=== PATIENT | female | born 1960 | race Caucasian/White ===

== ENCOUNTER 2023-07-31 03:56 | Inpatient (IN) | payer BC, SELFPAY ==
[2023-07-31] VITALS (12 sets, daily range): BP systolic 96–140; BP diastolic 52–74; PULSE 93–100; BMI 29.5; BMI 25.3
--- NOTE | 2023-07-31 00:32 | ED.GENMED ---
History of Present Illness
<EDDIE Gallagher - Last Filed: 07/31/23 06:36>
General
Chief Complaint: Swelling
Source: patient
Exam Limitations: none
Time Seen by Provider: 07/31/23 00:18
Nursing documentation reviewed up to this point in time: agreed with
History of Present Illness
History of Present Illness:
patient is a 62 y/o female with PMH of alcohol abuse presenting for swelling of B/l LE swelling. Patient admits the swelling has been off and on for the last few weeks and usually ice, elevation or a warm shower will help get rid of it. However this
time patient said it wouldn't go away with her normal remedies and there was increased pain. patient admits the pain is in both legs and described it as a throbbing pain that is constant. patient says the pain is worse at the toes. Patient admits to
bloating that has been on and off for a few weeks that comes and goes. patient describes discomfort with the bloating as 'fullness.' patient admits to a history of alcohol abuse but admits to not having any alcohol in months. patient states that she
has a history of liver issues but does not know what it is. patient denies any alcohol or smoke in the last 48 hours. patient denies and SOB, CP, DAVIS, itching, fever, chills, blood in stool or urine.
Past History
<EDDIE Gallagher - Last Filed: 07/31/23 06:36>
Past History
ED Past Medical History: GERD and Psychiatric (anxiety, depression)
ED Past Surgical History: Other
Social History
Tobacco: Other
Alcohol: Chronic alcoholic
Drug: Other
Personal:
Living: with family
Employment: Other
Review of Systems
<EDDIE Gallagher - Last Filed: 07/31/23 06:36>
Review of Systems
ABD/GI: Reports abdominal pain (fullness) and other (bloating)
Musculoskeletal: Reports edema
Skin: Reports rash and other (erythema )
Phy Exam
<EDDIE Gallagher - Last Filed: 07/31/23 06:36>
General Physical Exam
General Presentation: mild distress
Eye Exam
Scleral Findings: icteric sclera: Bilateral
Gastrointestinal Exam
Gastrointestinal Exam: normal bowel sounds, distended and tender
Palpation: generalized: Moderate tenderness
Liver Exam: jaundice (mild )
Skin Exam
Skin Exam: erythema, redness, tenderness, warmth and other (pitting edema noted over b/l lower extremities )
Scores
<EDDIE Gallagher - Last Filed: 07/31/23 06:36>
Heart Failure Risk
Heart Failure Risk Score: Not Applicable
Course
<EDDIE Gallagher - Last Filed: 07/31/23 06:36>
Orders/Labs/Results
Orders:
Orders
07/31/23 00:34
Electrocardiogram (*1) Urgent
Reason for Study: Other
Other Reason for Exam: Possible Sepsis
EKG- Treatment ONCE
07/31/23 00:40
Complete Blood Count/With Diff Urgent
Comprehensive Metabolic Panel Urgent
Lactic Acid Q4H
Comment: ON ICE, CANCEL 2ND ORDER IF FIRST LACTIC ACID LEVEL <2
Lipase Urgent
Sedimentation Rate [Erythrocyte Sed Rate] Urgent
Blood Culture Q30M
LEXY Source: Blood/Venous
Specimen Description:
Comment: FROM 2 SEPARATE SITES
Blood Culture Q30M
LEXY Source: Blood/Venous
Specimen Description:
Comment: FROM 2 SEPARATE SITES
07/31/23 01:27
US Abdomen Complete/Upper Urgent
Comment:
Reason For Exam: distention, elev lfts
US Legs, Bilateral [US Periph Venous LOWER Ext Jose G] Urgent
Comment:
Reason For Exam: swelling
07/31/23 02:50
Stool for occult blood [Hemetest Stools] As Directed
07/31/23 02:58
CRP [C-Reactive Protein] Urgent
INR [Prothrombin Time] Urgent
NH3 [Ammonia] Urgent
07/31/23 03:08
Admit/Transfer Patient As Directed
Co-Sign Provider:
Level of Care: Inpatient admission
Assign to:: Medical/Surgical
Physician / Group: htay
Diagnosis: ETOH associated Cirrhosis /New Ascites/ severe anemia
Reason for Hospitalization: ETOH associated Cirrhosis
New Ascites
Anasarca due to severe hypoalbuminema complicated b/l Chelsy edema
Severe NC NC anemia
Expected length of stay greater than two midnights?: Yes
ELOS- Estimated Length of Stay in days: 4
I certify the patient meets the requirements for IP care: Yes
07/31/23 03:10
Code Status As Directed
Resuscitation Status: Full Code
07/31/23 03:58
Pantoprazole 80 mg/100 ml Nss [Protonix] 80 mg in 100 ml IV Q10H
07/31/23 03:58
Consult Interventional Radiology [IRAD CONSULT] Routine
Consulting Provider: Benji Payton
Was physician already notified: No
Reason for consult: ETOH associated Cirrhosis New Ascites
Consult Notification Routine
Specialty to Notify: Gastroenterology
Consult Notification Routine
Specialty to Notify: IRAD (Interventional Radiology)
GASTROINTESTINAL CONSULT Routine
Consulting Provider: Martha Porter
Was physician already notified: No
Reason for consult: ETOH associated Cirrhosis New Ascites
Body Fluid Amylase Routine
Fluid Source: Peritoneal (Ascites)
Body Fluid Cell Count Routine
What is the Body Fluid: peritoneal fluid
Comment: post procedure
Body Fluid LDH Routine
Fluid Source: Peritoneal (Ascites)
Body Fluid Protein Routine
Fluid Source: Peritoneal (Ascites)
Fluid Culture with Gram Stain Routine
LEXY Source: Peritoneal Fluid
Specimen Description:
Comment: Post Procedure
Activity As Directed
Activity Level: With Assistance
INT (Intravenous Needle Therapy) As Directed
Comment: Place 2 IV catheters of the largest bore possible until stable
Intake/ Output As Directed
Frequency: Per unit guidelines
Orthostatic Vital Signs As Directed
Orthostatic VS Frequency: Now
Comment: then every four hours for twenty-four hours
Pneumatic Compression Sleeves As Directed
Type: Knee high
Vital Signs As Directed
Frequency: Per unit guidelines
Vital Signs As Directed
Specimen Description:
Frequency: Per unit guidelines
Weight As Directed
Frequency: Daily
IRAD Cytology Routine
Source: Peritoneal Fluid
Clinical Impression: etoh cirrhosis
DX Deep Vein Thrombosis Video Routine
07/31/23 Breakfast
NPO
Allow oral meds: Yes
Allow clear liquids: No
NPO with Ice Chips: Yes
Regular
At Your Request: Full Participation
Gram Stain IN AM
LEXY Source: Abdomen
Specimen Description:
07/31/23 06:16
Ferritin IN AM
H&H Q6H
Vitamin B12 IN AM
07/31/23 08:00
FOLic ACID [Folvite] 1 mg PO DAILY
Paroxetine [Paxil] 20 mg PO DAILY
07/31/23 12:00
H&H Q6H
07/31/23 18:00
H&H Q6H
07/31/23 23:59
H&H Q6H
08/01/23 06:00
Complete Blood Count/No Diff IN AM
Comprehensive Metabolic Panel IN AM
08/02/23 06:00
Complete Blood Count/No Diff IN AM
Comprehensive Metabolic Panel IN AM
08/03/23 06:00
Complete Blood Count/No Diff IN AM
Abnormal Lab Results
07/31/23 07/31/23
00:40 02:58
RBC 2.88 L 10^6/uL
(4.20-5.40)
Hgb 8.8 L g/dL
(12.0-16.0)
Hct 26.7 L %
(37.0-47.0)
RDW 16.4 H %
(11.5-14.5)
Absolute Monos (auto) 1.3 H 10^3/uL
(0.1-0.6)
Monocytes % 16.0 H %
(1.7-9.3)
ESR 58 H mm/hour
(0-20)
PT 15.9 H Sec
(11.4-14.6)
Sodium 130 L mmol/L
(135-145)
Calcium 8.0 L mg/dl
(8.4-10.2)
Total Bilirubin 1.6 H mg/dl
(0.2-1.3)
AST 48 H U/L
(14-36)
Ammonia < 9 L umol/L
(9-30)
C-Reactive Protein 12.20 H mg/L
(0.0-10.00)
Total Protein 5.4 L g/dl
(6.3-8.2)
Albumin 2.4 L g/dl
(3.5-5.0)
Lipase 374 H U/L
(23-300)
07/31/23 00:40
07/31/23 00:40
Vital Signs
Initial and Last Documented VS:
Initial Vital Signs
Temp Pulse Resp BP Pulse Ox
98.1 F 96 35 129/67 100
07/31/23 00:27 07/31/23 00:27 07/31/23 00:27 07/31/23 00:27 07/31/23 00:27
Last Documented Vital Signs
Temp Pulse Resp BP Pulse Ox
98.1 F 91 18 101/64 96
07/31/23 00:27 07/31/23 04:00 07/31/23 04:00 07/31/23 04:00 07/31/23 04:00
<Pola Steven, DO - Last Filed: 07/31/23 02:38>
Orders/Labs/Results
Orders:
Orders
07/31/23 00:34
Electrocardiogram (*1) Urgent
Reason for Study: Other
Other Reason for Exam: Possible Sepsis
EKG- Treatment ONCE
07/31/23 00:40
Complete Blood Count/With Diff Urgent
Comprehensive Metabolic Panel Urgent
Lactic Acid Q4H
Comment: ON ICE, CANCEL 2ND ORDER IF FIRST LACTIC ACID LEVEL <2
Lipase Urgent
Sedimentation Rate [Erythrocyte Sed Rate] Urgent
Blood Culture Q30M
LEXY Source: Blood/Venous
Specimen Description:
Comment: FROM 2 SEPARATE SITES
Blood Culture Q30M
LEXY Source: Blood/Venous
Specimen Description:
Comment: FROM 2 SEPARATE SITES
07/31/23 01:27
US Abdomen Complete/Upper Urgent
Comment:
Reason For Exam: distention, elev lfts
US Legs, Bilateral [US Periph Venous LOWER Ext Jose G] Urgent
Comment:
Reason For Exam: swelling
07/31/23 02:50
Stool for occult blood [Hemetest Stools] As Directed
07/31/23 02:58
CRP [C-Reactive Protein] Urgent
INR [Prothrombin Time] Urgent
NH3 [Ammonia] Urgent
07/31/23 03:08
Admit/Transfer Patient As Directed
Co-Sign Provider:
Level of Care: Inpatient admission
Assign to:: Medical/Surgical
Physician / Group: htay
Diagnosis: ETOH associated Cirrhosis /New Ascites/ severe anemia
Reason for Hospitalization: ETOH associated Cirrhosis
New Ascites
Anasarca due to severe hypoalbuminema complicated b/l Chelsy edema
Severe NC NC anemia
Expected length of stay greater than two midnights?: Yes
ELOS- Estimated Length of Stay in days: 4
I certify the patient meets the requirements for IP care: Yes
07/31/23 03:10
Code Status As Directed
Resuscitation Status: Full Code
07/31/23 03:58
Pantoprazole 80 mg/100 ml Nss [Protonix] 80 mg in 100 ml IV Q10H
07/31/23 03:58
Consult Interventional Radiology [IRAD CONSULT] Routine
Consulting Provider: Benji Payton
Was physician already notified: No
Reason for consult: ETOH associated Cirrhosis New Ascites
Consult Notification Routine
Specialty to Notify: Gastroenterology
Consult Notification Routine
Specialty to Notify: IRAD (Interventional Radiology)
GASTROINTESTINAL CONSULT Routine
Consulting Provider: Martha Porter
Was physician already notified: No
Reason for consult: ETOH associated Cirrhosis New Ascites
Body Fluid Amylase Routine
Fluid Source: Peritoneal (Ascites)
Body Fluid Cell Count Routine
What is the Body Fluid: peritoneal fluid
Comment: post procedure
Body Fluid LDH Routine
Fluid Source: Peritoneal (Ascites)
Body Fluid Protein Routine
Fluid Source: Peritoneal (Ascites)
Fluid Culture with Gram Stain Routine
LEXY Source: Peritoneal Fluid
Specimen Description:
Comment: Post Procedure
Activity As Directed
Activity Level: With Assistance
INT (Intravenous Needle Therapy) As Directed
Comment: Place 2 IV catheters of the largest bore possible until stable
Intake/ Output As Directed
Frequency: Per unit guidelines
Orthostatic Vital Signs As Directed
Orthostatic VS Frequency: Now
Comment: then every four hours for twenty-four hours
Pneumatic Compression Sleeves As Directed
Type: Knee high
Vital Signs As Directed
Frequency: Per unit guidelines
Vital Signs As Directed
Specimen Description:
Frequency: Per unit guidelines
Weight As Directed
Frequency: Daily
IRAD Cytology Routine
Source: Peritoneal Fluid
Clinical Impression: etoh cirrhosis
DX Deep Vein Thrombosis Video Routine
07/31/23 Breakfast
NPO
Allow oral meds: Yes
Allow clear liquids: No
NPO with Ice Chips: Yes
Regular
At Your Request: Full Participation
Gram Stain IN AM
LEXY Source: Abdomen
Specimen Description:
07/31/23 06:16
Ferritin IN AM
H&H Q6H
Vitamin B12 IN AM
07/31/23 08:00
FOLic ACID [Folvite] 1 mg PO DAILY
Paroxetine [Paxil] 20 mg PO DAILY
07/31/23 12:00
H&H Q6H
07/31/23 18:00
H&H Q6H
07/31/23 23:59
H&H Q6H
08/01/23 06:00
Complete Blood Count/No Diff IN AM
Comprehensive Metabolic Panel IN AM
08/02/23 06:00
Complete Blood Count/No Diff IN AM
Comprehensive Metabolic Panel IN AM
08/03/23 06:00
Complete Blood Count/No Diff IN AM
Abnormal Lab Results
07/31/23 07/31/23
00:40 02:58
RBC 2.88 L 10^6/uL
(4.20-5.40)
Hgb 8.8 L g/dL
(12.0-16.0)
Hct 26.7 L %
(37.0-47.0)
RDW 16.4 H %
(11.5-14.5)
Absolute Monos (auto) 1.3 H 10^3/uL
(0.1-0.6)
Monocytes % 16.0 H %
(1.7-9.3)
ESR 58 H mm/hour
(0-20)
PT 15.9 H Sec
(11.4-14.6)
Sodium 130 L mmol/L
(135-145)
Calcium 8.0 L mg/dl
(8.4-10.2)
Total Bilirubin 1.6 H mg/dl
(0.2-1.3)
AST 48 H U/L
(14-36)
Ammonia < 9 L umol/L
(9-30)
C-Reactive Protein 12.20 H mg/L
(0.0-10.00)
Total Protein 5.4 L g/dl
(6.3-8.2)
Albumin 2.4 L g/dl
(3.5-5.0)
Lipase 374 H U/L
(23-300)
07/31/23 00:40
07/31/23 00:40
Vital Signs
Initial and Last Documented VS:
Initial Vital Signs
Temp Pulse Resp BP Pulse Ox
98.1 F 96 35 129/67 100
07/31/23 00:27 07/31/23 00:27 07/31/23 00:27 07/31/23 00:27 07/31/23 00:27
Last Documented Vital Signs
Temp Pulse Resp BP Pulse Ox
98.1 F 91 18 101/64 96
07/31/23 00:27 07/31/23 04:00 07/31/23 04:00 07/31/23 04:00 07/31/23 04:00
Tesfayelt;EDDIE Gallagher - Last Filed: 07/31/23 06:36>
MDM/Problems Addressed
Differential Diagnosis Includes:
liver failure
cellulitis
MDM/Problems Addressed:
b/l LE swelling
<EDDIE Gallagher - Last Filed: 07/31/23 06:36>
*Critical Care Note
Total Time (30-74mins, 75-104mins- exclusive of procedures): Not Applicable
ED Attending Note
<EDDIE Gallagher - Last Filed: 07/31/23 06:36>
-
Portions of this chart may have been created with voice recognition software.� Occasional wrong word or��sound alike� substitutions may have occurred due to the inherent limitations of voice recognition software.
<Pola Steven DO - Last Filed: 07/31/23 02:38>
ED Attending Note
Patient seen and examined by attending physician: Yes
I performed the substantive portion of visit, reviewed & personally made and approve the management plan that is documented in note by myself or NATALIO.: Yes
ED Attending Note:
62-year-old female presents with bilateral lower extremity leg pain, swelling, edema, and redness. She states that her legs have always giving her trouble. She reports that they are always red and at times the erythema is worse than it is now.
She states that she is having pain. This pain is typical but she feels that she wanted to get it checked out. She also reports that the pain is typically alleviated with ice and shower. Tonight she states that those remedies have not worked.
Patient was seen in conjunction with the PA student. I have reviewed and agree with the history and treatment plan presented. On my independent physical exam, patient is awake, alert, and oriented x3. Abdomen is distended with diffuse tenderness
to palpation. Lower extremities are edematous and erythematous. They are warm to the touch. No respiratory distress. Scleral icterus present.
Rectal exam positive for occult blood. Blood consent signed by patient and is scanned in on the chart
Patient admits to drinking 5 of vodka daily for many years. She quit several months ago. She states that she is still occasionally has a beer with dinner but does not drink as extensively as she once did.
EKG shows sinus tachycardia rate of 95 left axis deviation present. There is a left bundle branch block present. When compared to previous EKG dated February 27, 2021, similar morphology noted. Patient not having any chest pain.
Discharge Plan
Departure
Patient Disposition: Admit
Date of Disposition: 07/31/23
Time of Disposition: 02:37
Presentation/result/management discussed w/ accepting MD/DO: Hospitalist
Discharge Problem:
Ascites, Leg edema, Abdominal distension, Anemia
Interventions
Interventions:
*Risk Screen - Suicide Last Done: 07/31/23 00:27
*General Assessment Last Done: 07/31/23 00:27
*Neglect/Abuse Screening Last Done: 07/31/23 00:27
ED- Fall Risk Assessment Last Done: 07/31/23 01:03
*ED COVID-19 Vaccine History Last Done: 07/31/23 01:46
ED- Cardiac Assessment Last Done: 07/31/23 01:03
ED- Pulmonary Assessment Last Done: 07/31/23 01:03
ED-Skin Assessment Last Done: 07/31/23 01:03
[2023-07-31 00:50] LABS: % Basophils 1.4 % (0-2); % Eosinophils 3.7 % (0-6); % Immature Granulocytes 0.5 % (0-0.5); % Lymphocytes 22.1 % (20.5-51.1); % Neutrophils 56.3 % (42.2-75.2); Absolute Basophils 0.1 10^3/uL (0-0.2); Absolute Eosinophils 0.3 10^3/uL (0-0.7); Absolute Lymphocytes 1.8 10^3/uL (1.2-3.4); Absolute Monocytes 1.3 10^3/uL (0.1-0.6); Absolute Neutrophils 4.7 10^3/uL (1.4-6.5); Hematocrit 26.7 % (37.0-47.0); Hemoglobin 8.8 g/dL (12.0-16.0); Mean Corpuscular Hgb 30.6 pg (27.0-31.0); Mean Corpuscular Volume 92.7 fL (81.0-99.0); Mean Platelet Volume 8.5 fL (7.4-10.4); Nucleated Red Blood Cells % 0 %; Platelet Count 315 10^3/uL (130-400); Red Blood Cell Count 2.88 10^6/uL (4.20-5.40); Red Cell Dist. Width 16.4 % (11.5-14.5); White Blood Cell Count 8.3 10^3/uL (4.8-10.8)
[2023-07-31 01:13] LABS: Lactic Acid 1.2 mmol/L (0.7-2.0)
[2023-07-31 01:15] LABS: ALT (SGPT) 16 U/L (0-35); AST (SGOT) 48 U/L (14-36); Albumin 2.4 g/dl (3.5-5.0); Alkaline Phosphatase 125 U/L (38-126); Blood Urea Nitrogen 10 mg/dl (7-17); Carbon Dioxide 22 mmol/L (22-30); Chloride 105 mmol/L (98-107); Glucose 87 mg/dl (70-99); Lipase 374 U/L (23-300); Potassium 4.1 mmol/L (3.5-5.1); Sodium 130 mmol/L (135-145); Total Bilirubin 1.6 mg/dl (0.2-1.3); Total Protein 5.4 g/dl (6.3-8.2); eGFR > 60.00
--- NOTE | 2023-07-31 03:02 | HPS.HSE ---
Family Physician
-
Family Physician: Ramirez Flor
Chief Complaint
-
Chelsy swelling for weeks.
History of Present Illness
62F HX ETOH use disorder seen at ER for evaluation of Chelsy swelling for weeks. Associated with pain and redness for few days. She took one dose of Alieve yesteray
Report bron stool. Denied black stool
Also noted fullness , described as bloating of abdomen.
Reports stop drinking ETOH for months.
Denied fever and chills
Medical History
Past Medical History
Past Medical History: Reports Other
Additional Past Medical History:
Recent former ETOH use disorder
HX Alcoholic hepatitis
GERD
Anxiety, depression,
Psoriasis
Past Surgical History: Reports Other
Social History
Tobacco: Non-smoker
Alcohol: Former (Used to drink 1/5 of vodka daily for many years. )
Drug: None
Family History
Family History: Not pertinent
Allergies / Home Medications
Allergies reflects when Allergies were last updated in [facility].
Home Medications with original date entered in [facility]
Allergy/Medication List:
Allergies
Allergy/AdvReac Type Severity Reaction Status Date / Time
Penicillins Allergy Unknown Verified 02/27/21 16:44
Home Medications
paroxetine HCl 20 mg tablet 20 mg PO DAILY Mental Health/Anxiety 02/27/21
Vitamin B-1 300 mg PO DAILY 07/31/23
cholecalciferol (vitamin D3) 25 mcg (1,000 unit) capsule (Vitamin D3) 75 mcg PO DAILY 07/31/23
donepezil 10 mg tablet 10 mg PO HS 07/31/23
folic acid 1,000 mcg PO DAILY 07/31/23
hydroxyzine HCl 25 mg tablet 25 mg PO TID 07/31/23
spironolactone 25 mg tablet 25 mg PO BID 07/31/23
Review of Systems
-
Constitutional: Reports No Symptoms
EENT: Reports No Symptoms
Respiratory: Reports No Symptoms
Cardiac: Reports No Symptoms
Abdomen/GI: Reports See HPI and Abdominal Pain
: Reports No Symptoms
Musculoskeletal: Reports Edema
Skin: Reports No Symptoms
Neurological: Reports No Symptoms
Endocrine: Reports No Symptoms
Hematologic/Lymphatic: Reports No Symptoms
Psych: Reports No Symptoms
Physical Exam
Vital Signs
Vital Signs
Temp Pulse Resp BP Pulse Ox
98.1 F 97 25 105/52 96
07/31/23 00:27 07/31/23 02:15 07/31/23 02:15 07/31/23 02:14 07/31/23 02:15
Physical Exam
General: No Apparent Distress and Comfortable
HEENT: NormoCephalic, Moist mucous membranes and Atraumatic
Respiratory: Clear
Cardiac: S1/S2 and Regular Rhythm
Breast: Deferred by me
Genito-urinary: Deferred by me
Musculoskeletal: Edema, Left Lower Extremity, Edema, Right Lower Extremity and Other (wram, red , b/l leg edma with lymphedenatous changes )
Skin: Warm
Neuro: AO x 3, Nonfocal/grossly intact and Other (no asterix )
Psych: Calm
Laboratory Results
-
07/31/23 00:40
07/31/23 00:40
Laboratory Results
Lactic Acid Cancelled 07/31/23 04:45
Total Bilirubin 1.6 mg/dl (0.2-1.3) H 07/31/23 00:40
AST 48 U/L (14-36) H 07/31/23 00:40
ALT 16 U/L (0-35) 07/31/23 00:40
Alkaline Phosphatase 125 U/L (38-126) 07/31/23 00:40
Lipase 374 U/L (23-300) H 07/31/23 00:40
Data Reviewed
-
Ultrasound: Report Reviewed by me
Lab Data: Labs Reviewed by me
Old Records: Reviewed
Impression/Plan
-
Reviewed VS: Afebrile , marginal ST ,marginal hypotension
Data
WCC 8.3
Hgb 8.8 - last Hgb was 13 on 03/01/21
MCV 92
Plt 315
Na 130
nl Cr nl eGFR
Ca 8 corrected Ca for Albumin 2.4 is 9.3
TB 1.6 AST 48 ALT 16
Alb 2.4
Pending INR
Pending NH3
BCx sent
US abd
Moderate amount of ascites in all quadrants of the abdomen, right-sided greater than left.
Nodular cirrhotic hyperechoic liver.
Cholelithiasis. Nonspecific gallbladder wall thickening of 4 mm. Negative Garza sign. No biliary ductal dilatation.
Bilateral renal cortical thinning.
Spleen measures up to 11.4 cm.
NEG Chelsy US for DVT
Last hospitalist admission: 03/01/21- 03/01/21
DC Dx
1. Alcoholic gastritis.
2. Alcohol use disorder.
3. Hypokalemia.
4. Hyponatremia.
5. Essential hypertension.
ASSESSMENT & PLAN
ETOH associated Cirrhosis
New Ascites: symptomatic , +/_ SBP due to Portal HTN
Portal HTN - somewhat normal platelet - not yet hypersplenic
Anasarca due to severe hypoalbuminemia complicated b/l Chesly edema
Synthetic dysfunction of liver cirrhosis suspected - low albumin
- Sono evidence of Nodular cirrhotic hyperechoic liver
- Sono evidence of enlarged spleen
- check INR
- NH3 for the base line ( No clinical eveidence of hepatic encephalopathy
- Hold off ABx for now
- IR consult for abdominal paracentesis to eval for SBP
- GI consult
HoB POS brown stool - suspect anemia due to chr GI loss
Severe NC NC anemia +/_ hemodilution due to anasarca
Nl WCC
Nl platelet
- took one dose of Aleive last night for leg pain
- HD stable - no acute indication for blood Tx yet
- check B12, Folate
- Eval for GIB
- NPO, IVF
- PPI gtt
- T & S, blood consented
- GI eval to consider EGD to eval varix
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
- Held Aldactone
- Observe BP
B/l painful warm erythematous leg with lymphedematous changes
HD stable, afebrile, nl WCC
- Hold off ABx for now till paracentesis
Anxiety/depression
- cont Paxil
HX ETOH use disorder- stoped for several months
- Observe
GERD
- on PPI gtt
DVT Px: SCD
Code: Full
IP MS
[2023-07-31 03:19] LABS: INR 1.29; PT 15.9 Sec (11.4-14.6)
[2023-07-31 03:20] LABS: Ammonia < 9 umol/L (9-30)
[2023-07-31] MEDS: PROTONIX 100 IV (04:15)
[2023-07-31 06:10] LABS: Erythrocyte Sed Rate 58 mm/hour (0-20)
[2023-07-31 06:27] LABS: Hematocrit 27.2 % (37.0-47.0); Hemoglobin 9.3 g/dL (12.0-16.0)
[2023-07-31 07:33] LABS: Ferritin 20.3 ng/ml (11.1-264.0)
[2023-07-31 07:48] LABS: Vitamin B12 739 pg/ml (239-931)
--- NOTE | 2023-07-31 08:59 | W.PN.HOSP.TC ---
Today's Communication/Plan
-
paracentesis
stop protonix gtt and change to BID
IV Cefazolin, LE elevation
F/U further GI recs
Assessment / Plan
Assessment / Plan
US abd
Moderate amount of ascites in all quadrants of the abdomen, right-sided greater than left.
Nodular cirrhotic hyperechoic liver.
Cholelithiasis. Nonspecific gallbladder wall thickening of 4 mm. Negative Garza sign. No biliary ductal dilatation.
Bilateral renal cortical thinning.
Spleen measures up to 11.4 cm.
ASSESSMENT & PLAN
ETOH associated Cirrhosis
Ascites - patient telling me she gets paracentesis every week
Portal HTN
Anasarca due to severe hypoalbuminemia complicated b/l Chelsy edema
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
- Sono evidence of Nodular cirrhotic hyperechoic liver
- Sono evidence of enlarged� spleen�
- INR 1.29
- NH3 < 9
- IR consult for abdominal paracentesis to eval for SBP
- GI consult
Anemia
-stable Hg, no e/o active bleeding
-change protonix to IV BID
-add on iron panel
-appreciate GI consult
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
-� Held Aldactone, resume tomorrow post para
- Observe BP
B/l painful warm erythematous leg with lymphedematous changes
HD stable, afebrile, nl WCC
-will start IV Cefazolin post para (going now)
Anxiety/depression
- cont� Paxil
HX ETOH use disorder- stopped for several months
- Observe
GERD
PPI
DVT Px: SCD
Code: Full
IP MS
Anticipated Discharge: 24 - 48 hours
Subjective/Interval History
-
Date of Service: July 31, 2023
patient telling me her legs look less red than earlier
she is forgetful
Objective Data
-
Labs:
Laboratory Results
07/31/23 07/31/23 07/31/23
00:40 02:58 06:16
WBC 8.3
Hgb 8.8 L 9.3 L
Hct 26.7 L 27.2 L
Plt Count 315
PT 15.9 H
INR 1.29
Sodium 130 L
Potassium 4.1
Chloride 105
Carbon Dioxide 22
BUN 10
Creatinine 0.6
Glucose 87
Calcium 8.0 L
Total Bilirubin 1.6 H
AST 48 H
ALT 16
Alkaline Phosphatase 125
07/31/23 07/31/23 07/31/23
12:00 18:00 23:59
WBC
Hgb Pending Pending Pending
Hct Pending Pending Pending
Plt Count
PT
INR
Sodium
Potassium
Chloride
Carbon Dioxide
BUN
Creatinine
Glucose
Calcium
Total Bilirubin
AST
ALT
Alkaline Phosphatase
Vital Signs:
Vital Signs
Temp Pulse Resp BP Pulse Ox
98.1 F 101 22 114/61 98
07/31/23 07:21 07/31/23 07:21 07/31/23 07:21 07/31/23 07:21 07/31/23 07:21
Review of Systems
-
History Source: Patient
All other systems: Reviewed and negative
Physical Exam
-
General: No Apparent Distress and Appears Chronically Ill
HEENT: PERRLA
Respiratory: Clear to Auscultation; Negative Wheezes
Cardiac: Regular Rhythm and S1/S2
GI: Soft and Nontender
Musculoskeletal: Other (b/l erythema and swelling, tenderness )
Skin: Warm and Dry; Negative Rash
Neuro: AO x 3
Psych: Calm
Data Reviewed
-
Diagnostic Radiology: Report Reviewed by me
Labs: Labs Reviewed by me
[2023-07-31] MEDS: FOLVITE 1 MG PO (09:08)
[2023-07-31] MEDS: PAXIL 20 MG PO (09:09)
--- NOTE | 2023-07-31 09:11 | CON.GI ---
Addendum entered and electronically signed by Martha Porter MD 07/31/23 16:31:
I saw and examined the patient.
The PROSTHETIST or PA's note was reviewed and I agree with the note.
Comment: 62-year-old female past medical history of alcoholic cirrhosis MELD Na 18 undergoing weekly paracentesis following at [facility] presenting with lower extremity swelling and erythema consistent with likely cellulitis. Initially, the ER
thought the ascites was new but on discussion with the patient she gets weekly paracentesis. Unclear why, she is on a low-dose of diuretics (not sure why on higher doses with need for weekly paracentesis). We do not have access to her records that
she follows with [facility]. She has anemia although we do not have her baseline and cirrhotics are typically anemic - should get records. Patient denies any blood in her stool. According to ER notes brown guaiac positive. Discussed with
[facility], can decrease PPI to daily. Unclear if she even needs to be on it and there is an increased risk of SBP with PPIs defer to her outpatient GI at [facility] if this needs to be continued long-term. I stressed to the patient the importance of
following up with [facility]. With forgetfulness will add on xifaxan 550 bid. Defer care of cellulitis to primary team. GI will sign off. Please call with any questions or issues. D/w hospitalist Dr. Mott.
Original Note:
Consultation
-
Date/Time Consultation Requested: 07/31/2023 @ 03:58
Date/Time Consultation Performed: 07/31/2023 @ 09:00
Requesting Provider: Dr. Chamberlain
Performing Provider: SABRA Buenrostro; Dr. Alma Porter
Reason for Consultation: ETOH associated Cirrhosis New Ascites
Medical History
Chief Complaint / HPI
Chief Complaint: LE swelling
History of Present Illness:
The pt is a 62 yo female with a PMH significant for ETOH abuse, alcoholic hepatitis, cirrhosis, anxiety, GERD, psoriasis, who presented to the ER with complaints of ongoing LE swelling. We are being asked to evaluate for ?new onset ascites and
cirrhosis. The pt is a poor historian therefore the medical record was utilized for history. The pt notes she has had increased swelling and pain from her lower extremities. She also admits to increased distention of her abdomen with pain around her
umbilicus. She denies hx of cirrhosis but per nursing she was told she has a history of cirrhosis. The pt admits she follows with GI at [facility] and undergoes weekly paracentesis. She denies any significant confusion or lethargy, but is forgetful in
conversation. She denies yellowing of the skin or eyes, but admits her urine is very dark. She does not know her medications but reports she takes whatever she is prescribed. She denies any signs of bleeding such as melena, hematochezia, or
hematemesis. She denies fevers, chills, chest pain, or shortness of breath. She denies constipation or diarrhea. She does have chronic GERD and takes medicine for this (Nexium in her chart previously). She formly drank vodka daily but has since
stopped and will only have a beer on occasion. She has been seen in the past by our group with alcoholic hepatitis. She had EGD in February 2021 for n/v which was normal without evidence of varices. She denies use of blood thinners. She takes Aleve
on occasion but this is infrequently. She denies FH GI cancers or disorders. Prior colonoscopy within the last 10 years per pt. Routine labs on admission showed: hgb 8.8, WBC 8.3, MCV 92.7, plt 315,000, INR 1.29, Na 130, K 4.1, BUN 10, Cr 0.6,
Lactic acid 1.2, serum iron 33, iron sat 14, ferritin 20.3, TIBC 232, TB 1.6, AST 48, AT 16, alk phos 125, ammonia <9, CRP 12.2, lipase 374, vitamin b12 739. US of the abdomen showed large volume ascites, findings consistent with liver cirrhosis,
and cholelithiasis.
Past Medical History
Past Medical History: GERD, Psychiatric (anxiety, depression) and Other (ETOH abuse, alcoholic hepatitis, psoriasis, kidney stones)
Past Surgical History: and Gynecological (hysterectomy)
Social History
Tobacco: Former Smoker
Alcohol: Occasional (occasional beer, previously drank 1/5 vodka daily)
Drug: None
Personal:
Living: Alone
Family History
Family History: Reviewed & Not Pertinent
Allergies / Home Medications
Allergy/AdvReac Type Severity Reaction Status Date / Time
Penicillins Allergy Unknown Verified 02/27/21 16:44
Medication Instructions Recorded
paroxetine HCl 20 mg tablet 20 mg PO DAILY Mental 02/27/21
Health/Anxiety
Vitamin B-1 300 mg PO DAILY 07/31/23
cholecalciferol (vitamin D3) 25 75 mcg PO DAILY 07/31/23
mcg (1,000 unit) capsule (Vitamin
D3)
donepezil 10 mg tablet 10 mg PO HS 07/31/23
folic acid 1,000 mcg PO DAILY 07/31/23
hydroxyzine HCl 25 mg tablet 25 mg PO TID 07/31/23
spironolactone 25 mg tablet 25 mg PO BID 07/31/23
Review of Systems
-
History Source: Patient
Constitutional: Reports No Symptoms
EENT: Reports No Symptoms
Respiratory: Reports No Symptoms
Cardiac: Reports No Symptoms
Abdomen/GI: Reports Abdominal Pain (distention)
: Reports No Symptoms and Dark Urine
Musculoskeletal: Reports No Symptoms
Skin: Reports Other (redness/swelling bilateral LE's)
Neurological: Reports No Symptoms
Vital Signs
Temp Pulse Resp BP Pulse Ox
98.1 F 101 22 114/61 98
07/31/23 07:21 07/31/23 07:21 07/31/23 07:21 07/31/23 07:21 07/31/23 07:21
Physical Exam
Exam
General: Well Developed, No Apparent Distress, Comfortable and Other
HEENT: Normocephalic, Anicteric and Atraumatic
Respiratory: Clear
Cardiac: S1/S2 and Regular Rhythm
Breast: Deferred by me
GI: Soft, Non Tender, Normal Bowel Sounds and Distended
Rectal: Other (brown heme + per ER)
Musculoskeletal: Edema (+2 LE edema bilaterally with erythema and tenderness with palpation)
Skin: Warm, Dry and Other (as above LE exam)
Neuro: Awake, Alert and Oriented (to self, place, and time)
Psych: Calm and Other (forgetful)
Awake, alert, non-toxic appearing
Results
WBC 8.3 10^3/uL (4.8-10.8) 07/31/23 00:40
Hgb Cancelled 07/31/23 23:59
Hct Cancelled 07/31/23 23:59
MCV 92.7 fL (81.0-99.0) 07/31/23 00:40
Plt Count 315 10^3/uL (130-400) 07/31/23 00:40
Absolute Neuts (auto) 4.7 10^3/uL (1.4-6.5) 07/31/23 00:40
PT 15.9 Sec (11.4-14.6) H 07/31/23 02:58
INR 1.29 07/31/23 02:58
Sodium 130 mmol/L (135-145) L 07/31/23 00:40
Potassium 4.1 mmol/L (3.5-5.1) 07/31/23 00:40
Chloride 105 mmol/L (98-107) 07/31/23 00:40
Carbon Dioxide 22 mmol/L (22-30) 07/31/23 00:40
BUN 10 mg/dl (7-17) 07/31/23 00:40
Creatinine 0.6 mg/dL (0.6-1.0) 07/31/23 00:40
Calcium 8.0 mg/dl (8.4-10.2) L 07/31/23 00:40
Total Bilirubin 1.6 mg/dl (0.2-1.3) H 07/31/23 00:40
AST 48 U/L (14-36) H 07/31/23 00:40
ALT 16 U/L (0-35) 07/31/23 00:40
Alkaline Phosphatase 125 U/L (38-126) 07/31/23 00:40
Lipase 374 U/L (23-300) H 07/31/23 00:40
Diagnostic Image Results:
07/31/23 US abdomen: 'Large volume ascites. Liver within the limits of normal in size with slightly nodular contour which could represent cirrhotic pathology. Cholelithiasis. Evaluation of gallbladder wall limited secondary to ascites. No findings to
suggest biliary tract dilatation. Negative sonographic Garza's sign. Pancreas, abdominal aorta and IVC significantly obscured, most likely by overlying bowel gas.'
07/31/23 Duplex US LE: No evidence of deep venous thrombosis of the lower extremities bilaterally.
Prior GI Procedures:
EGD: 03/01/21 Dr. Porter: �Normal esophagus. Erythematous mucosa in the stomach. Biopsied. Normal examined duodenum.
Colonoscopy: about 9-10 years ago [facility] + polyps per pt
Assessment / Plan
-
The pt is a 62 yo female with a PMH significant for ETOH abuse, alcoholic hepatitis, cirrhosis, anxiety, GERD, psoriasis, who presented to the ER with complaints of ongoing LE swelling. We are being asked to evaluate for ?new onset ascites and
cirrhosis. Poor historian but reports weekly paracentesis at [facility]. Unclear on when she was diagnosed with cirrhosis but continues intermittent alcohol use. Decompensated with ascites, and ?HE although with normal ammonia levels. May be secondary
to infection with concern for cellulitis. MELD-Na 18. Noted with anemia but no active signs of bleeding. No hx EV based on prior scope here in 2020. Pending IR for paracentesis.
Problem list:
-decompensated suspected alcoholic liver cirrhosis with ascites, MELD-Na 18
-?HE/confusion. normal ammonia level
-Cellulitis LE's
-normocytic anemia
-ETOH abuse, hx alcoholic hepatitis
-hyponatremia
-abnormal LFT's
-elevated CRP, ESR
Other pertinent medical hx:
-GERD
-Anxiety, depression
-psoriasis
Recommendations:
-Etiology of current symptoms 2/2 decompensated cirrhosis of the liver, suspected to be alcohol related, with ascites, and ?HE.
---US imaging confirming cirrhosis with large volume ascites
-Agree with diagnostics/therapeutic paracentesis, r/o SBP
-Abx for cellulitis per hospitalist, may cause mild HE with infection (although without leukocytosis, fevers, or lactic acidosis)
-Monitor LFTs and daily MELD-Na labs (CBC, CMP, INR)
-Trend H/H; heme + but brown stool without active signs of bleeding and normal platelets
-Iron studies as above showing iron deficiency. Consider Iron replacement.
-EGD 2020 without EV. She will need eventual EGD for surveillance of EV if not done recently at [facility].
-PPI BID ok, no active bleeding to suggest need for drip
-Obtain records from [facility] (reportedly gets paracentesis weekly there)
-Unclear as to why she is not on more diuretics at baseline (on spironolactone at 25mg daily), consider starting lasix 20mg/spiranolactone 50mg post paracentesis tomorrow. Will review with Dr. Porter
-She will need to abstain from alcohol completely going forward, which she is aware of
-Follow-up outpatient with her GI at [facility], she should also see hepatology
-Will follow
-
-
Thank you for consultation and allowing me to participate in the patient's care. Please call the substation supervisor GI physician during the after hours with any questions or concerns.
[2023-07-31 09:31] LABS: Iron 33 ug/dl (37-170)
[2023-07-31 09:40] LABS: Percent Saturation 14 % (20-50); Total Iron Binding Capacity 232 ug/dl (265-497)
--- NOTE | 2023-07-31 10:13 | CM ---
Patient seen at bedside, ready to go for testing. Patient recently and patient somewhat confused. Patient currently living in a 2 story home with 1 step to enter and no history of VN or SNF. Patient PCP per medical records and
patient daughter, PCP is Dr. Flor and she uses the [facility] in [place]. Patient indicated that CM should call Gladis as she was the oldest and would know how things were.
CM called to patient daughter Gladis who states that the family coming has been coming in for meals and patient melony and are in the process of of buying home and moving in with her. Patient daughter, Gladis's sister, sharee is working with
Waiver services to be patient caregiver, and is the patient POA, CM requested that the form be brought in to be scanned to the chart. Patient has a Chair lift and shower on 2nd floor but plan is for first floor apartment/in law suite to be
developed.
Per patient daughter in 2021 in [facility] in [place]. If needed SNF would be option but family discussion would be needed prior to any placements. CM will continue to follow for discharge planning needs.
Plan; home with VN vs SNF pending medical assessments
--- NOTE | 2023-07-31 11:00 | PTCARENOTE ---
Received pt from previous RN. Pt AOx3, forgetful, poor historian, pleasant. Bed alarm in place for pt safety. Jose G LE reddened w/ +3 edema. Elevated on pillows. VSS. Ab round and distended. Sent to IR for paracentesis. NPO, awaiting GI evaluation.
[2023-07-31 11:05] LABS: Body Fluid Amylase 43 U/L; Body Fluid LDH < 90 U/L; Body Fluid Protein < 2.0 g/dl
[2023-07-31] MEDS: ANCEF 10 IV ×2 (11:43→22:18)
[2023-07-31 13:51] LABS: Body Fluid Mononuclear 96.8 %; Body Fluid Polymorphonuclear 3.2 %; Body Fluid WBC 93 /CUMM
--- NOTE | 2023-07-31 14:00 | PTCARENOTE ---
Pt returned s/p paracentesis, bandaide in place on RLQ. VSS. Assisted pt OOB to bathroom x1, generalized weakness. Low fat diet ordered. Assisted pt to wash up at the sink. Will continue to monitor.
[2023-07-31 14:16] LABS: Body Fluid Second Tech HB
--- NOTE | 2023-07-31 16:15 | PTCARENOTE ---
Received pt from ED.Pt awake, alert and oriented x3. Forgetful at times. Pt VSS 98% on RA. Pt c/o discomfort in b/l lower extremities, tolerable at this time. Legs red/warm and edematous. Pt oriented to room, call raymond within reach, bed alarm placed
for safety, plan of care ongoing.
[2023-07-31] MEDS: XIFAXAN 550 MG PO (22:19)
[2023-08-01] VITALS (7 sets, daily range): BP systolic 108–148; BP diastolic 63–85; PULSE 93–108; BMI 25.1
[2023-08-01] MEDS: ULTRAM 25 MG PO ×2 (00:36→20:53)
[2023-08-01] MEDS: ANCEF 10 IV ×3 (04:49→20:53)
--- NOTE | 2023-08-01 06:00 | PTCARENOTE ---
Patient reports 8/10 pain to her bilateral lower extremities. ASBESTOS COVERER made aware, stat dose of tramadol 25 mg ordered and given to patient at 0036 with relief.
[2023-08-01] MEDS: PROTONIX 40 MG PO (07:44)
[2023-08-01] MEDS: FOLVITE 1 MG PO (07:45)
[2023-08-01] MEDS: XIFAXAN 550 MG PO ×2 (07:45→20:50)
[2023-08-01] MEDS: PAXIL 20 MG PO (07:45)
[2023-08-01 08:48] LABS: Hematocrit 28.4 % (37.0-47.0); Hemoglobin 9.3 g/dL (12.0-16.0); Mean Corp Hgb Conc. 32.7 g/dL (33.0-37.0); Mean Corpuscular Hgb 30.5 pg (27.0-31.0); Mean Corpuscular Volume 93.1 fL (81.0-99.0); Mean Platelet Volume 8.7 fL (7.4-10.4); Platelet Count 346 10^3/uL (130-400); Red Blood Cell Count 3.05 10^6/uL (4.20-5.40); Red Cell Dist. Width 16.4 % (11.5-14.5); White Blood Cell Count 6.3 10^3/uL (4.8-10.8)
[2023-08-01 09:44] LABS: ALT (SGPT) 15 U/L (0-35); AST (SGOT) 51 U/L (14-36); Albumin 2.3 g/dl (3.5-5.0); Alkaline Phosphatase 95 U/L (38-126); Blood Urea Nitrogen 8 mg/dl (7-17); Carbon Dioxide 21 mmol/L (22-30); Chloride 105 mmol/L (98-107); Estimated Creatinine Clearance 68 ml/min; Glucose 71 mg/dl (70-99); Potassium 4.2 mmol/L (3.5-5.1); Sodium 130 mmol/L (135-145); Total Bilirubin 2.1 mg/dl (0.2-1.3); Total Protein 5.2 g/dl (6.3-8.2); eGFR > 60.00
--- NOTE | 2023-08-01 11:09 | W.PN.HOSP.TC ---
Today's Communication/Plan
-
IV Cefazolin, likely transition to Keflex and DC tomorrow
Assessment / Plan
Assessment / Plan
US abd
Moderate amount of ascites in all quadrants of the abdomen, right-sided greater than left.
Nodular cirrhotic hyperechoic liver.
Cholelithiasis. Nonspecific gallbladder wall thickening of 4 mm. Negative Garza sign. No biliary ductal dilatation.
Bilateral renal cortical thinning.
Spleen measures up to 11.4 cm.
ASSESSMENT & PLAN
B/l LE Cellulitis
-improving on IV Cefazolin - continue (day 2)
-likely DC home tomorrow on Keflex
-PT HH
ETOH associated Cirrhosis
Ascites
Portal HTN
Anasarca due to severe hypoalbuminemia
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
-this is a known diagnosis, patient follows at [facility]
-s/p para without e/o SBP
-Rifaximin started per GI - CM consult for cost
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
Anemia
SAPNA
-stable Hg, no e/o active bleeding
-change protonix to daily
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
-� Held Aldactone, resume tomorrow post para
- Observe BP
Anxiety/depression
- cont� Paxil
HX ETOH use disorder- stopped for several months
- Observe
GERD
PPI
DVT Px: SCD
Code: Full
IP MS
Anticipated Discharge: 24 - 48 hours
Subjective/Interval History
-
Date of Service: August 01, 2023
legs improved this morning but continues to have pain
Objective Data
-
Labs:
Laboratory Results
08/01/23
07:55
WBC 6.3
Hgb 9.3 L
Hct 28.4 L
Plt Count 346
Sodium 130 L
Potassium 4.2
Chloride 105
Carbon Dioxide 21 L
BUN 8
Creatinine 0.5 L
Glucose 71
Calcium 8.0 L
Total Bilirubin 2.1 H
AST 51 H
ALT 15
Alkaline Phosphatase 95
Vital Signs:
Vital Signs
Temp Pulse Resp BP Pulse Ox
98.2 F 91 18 120/68 97
08/01/23 07:00 08/01/23 07:00 08/01/23 07:00 08/01/23 07:00 08/01/23 07:00
I&O
07/31/23 08/01/23 08/02/23
06:59 06:59 06:59
Intake Total 480 / 480
Balance 480 / 480
Review of Systems
-
History Source: Patient
All other systems: Reviewed and negative
Physical Exam
-
General: No Apparent Distress and Appears Chronically Ill
HEENT: PERRLA
Respiratory: Clear to Auscultation; Negative Wheezes
Cardiac: Regular Rhythm and S1/S2
GI: Soft and Nontender
Musculoskeletal: Other (b/l erythema and swelling, tenderness )
Skin: Warm and Dry; Negative Rash
Neuro: AO x 3
Psych: Calm
Data Reviewed
-
Diagnostic Radiology: Report Reviewed by me
Labs: Labs Reviewed by me
[2023-08-01] MEDS: ALDACTONE 25 MG PO ×2 (11:43→20:50)
[2023-08-01] MEDS: ARICEPT 10 MG PO (17:07)
[2023-08-02] MEDS: ANCEF 10 IV ×2 (04:58→11:53)
[2023-08-02 06:00] VITALS: BMI 25.2
[2023-08-02 07:30] VITALS: BP 118/61
[2023-08-02] MEDS: FOLVITE 1 MG PO (07:48)
[2023-08-02] MEDS: XIFAXAN 550 MG PO (07:48)
[2023-08-02] MEDS: ALDACTONE 25 MG PO (07:48)
[2023-08-02] MEDS: PROTONIX 40 MG PO (07:48)
[2023-08-02] MEDS: PAXIL 20 MG PO (07:48)
--- NOTE | 2023-08-02 11:52 | W.PN.HOSP.TC ---
Today's Communication/Plan
-
Ok for DC today
Assessment / Plan
Assessment / Plan
US abd
Moderate amount of ascites in all quadrants of the abdomen, right-sided greater than left.
Nodular cirrhotic hyperechoic liver.
Cholelithiasis. Nonspecific gallbladder wall thickening of 4 mm. Negative Garza sign. No biliary ductal dilatation.
Bilateral renal cortical thinning.
Spleen measures up to 11.4 cm.
ASSESSMENT & PLAN
B/l LE Cellulitis
-improving on IV Cefazolin - continue (day 3) -->transition to Keflex; DC on 5 more days
-PT HH
ETOH associated Cirrhosis
Ascites
Portal HTN
Anasarca due to severe hypoalbuminemia
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
-this is a known diagnosis, patient follows at [facility]
-s/p para without e/o SBP
-Rifaximin started per GI - CM consult for cost - no copay, will be available on Saturday
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
Anemia
SAPNA
-stable Hg, no e/o active bleeding
-change protonix to daily
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
-resume spironolactone
Anxiety/depression
- cont� Paxil
HX ETOH use disorder- stopped for several months
- Observe
GERD
PPI
DVT Px: SCD
Code: Full
IP MS
Anticipated Discharge: Today
Subjective/Interval History
-
Date of Service: August 02, 2023
feeling better
redness improving
wants to go home
Objective Data
-
Vital Signs:
Vital Signs
Temp Pulse Resp BP Pulse Ox
98.1 F 90 18 118/61 96
08/02/23 07:30 08/02/23 07:48 08/02/23 07:30 08/02/23 07:48 08/02/23 07:30
I&O
08/01/23 08/02/23 08/03/23
06:59 06:59 06:59
Intake Total 480 / 480 1500 / 1500
Balance 480 / 480 1500 / 1500
Review of Systems
-
History Source: Patient
All other systems: Reviewed and negative
Physical Exam
-
General: No Apparent Distress and Appears Chronically Ill
HEENT: PERRLA
Respiratory: Clear to Auscultation; Negative Wheezes
Cardiac: Regular Rhythm and S1/S2
GI: Soft and Nontender
Musculoskeletal: Other (b/l erythema and swelling, tenderness - improving )
Skin: Warm and Dry; Negative Rash
Neuro: AO x 3
Psych: Calm
Data Reviewed
-
Diagnostic Radiology: Report Reviewed by me
Labs: Labs Reviewed by me
--- NOTE | 2023-08-02 12:02 | W.DS.TRANS ---
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
-
Discharge Instructions:
Discharge Diagnosis/Procedures bilateral lower extremity cellulitis
Diet 2 Gram Sodium,Restrict fluids to 48 oz
Activity As tolerated
Driving Restrictions As prior to admission
Bathing Restrictions None
Other Services PT,VN
Instructions:
Stand-Alone Forms:
Changes to Home Medications: Yes
Discharge Medications:
DC Medications w/original date entered in [email or web address]
paroxetine HCl 20 mg tablet 20 mg PO DAILY Mental Health/Anxiety 02/27/21
cholecalciferol (vitamin D3) 25 mcg (1,000 unit) capsule (Vitamin D3) 75 mcg PO QPM Supplement 07/31/23
donepezil 10 mg tablet 10 mg PO QPM cognition 07/31/23
folic acid 1 mg tablet 1 mg PO QPM supplement 07/31/23
spironolactone 25 mg tablet 25 mg PO BID Fluid Retention/Swelling 07/31/23
thiamine HCl (vitamin B1) 300 mg PO QPM supplement 07/31/23
cephalexin 500 mg capsule 500 mg PO QID #20 caps 08/02/23
pantoprazole 40 mg tablet,delayed release 40 mg PO DAILY #30 tabs 08/02/23
rifaximin 550 mg tablet (Xifaxan) 550 mg PO BID #60 tabs 08/02/23
Home Medication Changes
Please follow up with your Rehabilitation Services Aide or Discuss with Dr. Flor referral to outpatient Rehabilitation Services Aide
You are started on Rifampin 550mg PO BID. It may not be available to pickle water pump operator until Saturday, Ok to wait until then.
Complete 5 more days of oral antibiotics.
Stop hydroxyzine - this can increase dizziness, unsteadiness.
Stop Naproxen give risk of GI upset.
Pending Results: No
[2023-08-02 12:12] VITALS: BP 134/71
--- NOTE | 2023-08-02 14:29 | W.DCSUMMARY ---
Discharge Summary
Discharge Data
Date of Admission: 07/31/23
Date of Discharge: 08/02/23
-
Pending Results: No
Hospital Course
Discharging Physician : Dr. Daylin Mott
Disposition : Home
Primary care physician : Dr. Ramirez Flor
Principal Discharge diagnosis : bilateral lower extremity cellulitis
Hospital Course :
Ms. Maria De Jesus Lopez is a 62 yo woman with hx alcoholic cirrhosis and ascites requiring paracentesis every week, former alcohol use disorder, anxiety/depression who presents to the ER with increased swelling and redness bilateral lower extremities.
Triage vitals stable. Labs without leukocytosis and normal kidney function. LE US without DVT. She was started on IV Cefazolin for LE cellulitis. Erythema improved and she is discharged with 5 more days of Keflex.
GI consulted for initial report that cirrhosis was new (patient poor historian); but patient receives paracentesis every week. She had paracentesis inpatient without e/o SBP. She is started on Rifaximin per GI. She is also started on daily
protonix. Hg stable in-house with value 9.3 on 07/31. Patient to follow up closely with her outpatient PCP and GI doctor. 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
Time spent on discharge was 35 minutes.
Important imaging findings :
Procedure findings :
Discharge Plan
-
Patient Disposition: Home with Home Care
Discharge Diagnosis/Procedures: bilateral lower extremity cellulitis
Condition: Fair
Diet: 2 Gram Sodium and Restrict fluids to 48 oz
Activity: As tolerated
Driving Restrictions: As prior to admission
Bathing Restrictions: None
Other Services: VN and PT
Referrals:
Ramirez Flor, [Family Provider] - in less than 1 week
Additional Discharge Medication Instructions: Please follow up with your Project Management Intern or Discuss with Dr. Flor referral to outpatient Project Management Intern
You are started on Rifampin 550mg PO BID. It may not be available to sweet pickled fruit maker until Saturday, Ok to wait until then.
Complete 5 more days of oral antibiotics.
Stop hydroxyzine - this can increase dizziness, unsteadiness.
Stop Naproxen give risk of GI upset.
Prescriptions:
New
Xifaxan 550 mg Tablet
550 mg PO BID Qty: 60 0RF
cephalexin 500 mg Capsule
500 mg PO QID Qty: 20 0RF
pantoprazole 40 mg Tablet,Delayed Release (Dr/Ec)
40 mg PO DAILY Qty: 30 0RF
Continued
paroxetine HCl 20 MG tablet
20 mg PO DAILY
donepezil 10 mg Tablet
10 mg PO QPM
Patient Comments:
07/31/2023, prescribed HS but pt. takes QPM.
spironolactone 25 mg Tablet
25 mg PO BID
cholecalciferol (vitamin D3) [Vitamin D3] 25 mcg (1,000 unit) Capsule
75 mcg PO QPM
folic acid 1 mg Tablet
1 mg PO QPM
thiamine HCl (vitamin B1)
300 mg PO QPM
Discontinued
hydroxyzine HCl 25 mg Tablet
25 mg PO TIDPRN PRN (Reason: anxiety)
naproxen sodium [Aleve] 220 mg Tablet
220 mg PO DAILYPRN PRN (Reason: mild pain)
Discharge Orders:
Discharge Patient (As Directed); Ordered 08/02/23
Ordered By: Daylin Mott
Discharge Date and Time
Discharge Date/Time: 08/02/23 14:09
--- NOTE | 2023-08-02 14:51 | CM ---
Addendum entered by Courtney Cardona 08/02/23 15:02:
[facility] accepted patient's home care referral
Fax:
Original Note:
CM following re: d/c planning
Chart reviewed
Pt is medically stable for d/c
CM spoke with the patient's daughter Bere to inform of the same
CM informed Bere that home health was recommended and choices were provided
Bere selected [facility] pending her mother's insurance would accept because of familiarity with the agency however after referral was placed, [facility] informed this insurance writer that the patient's insurance was not one that was covered by [facility]
CM then placed referral with [facility]; awaiting a response at this time
Pt insurance does not dictate IMM
No additional d/c needs to note
PLAN; d/c home with VN (awaiting response from [facility])
== END 2023-08-02 14:09 | disposition home health service (06) | DRG 433 ==
LOC: 4 EAST ACU 03:56
PROVIDERS: Radiology Vascular & Interventional Radiology; ADMITTING PHYSICIAN Internal Medicine; ATTENDING PHYSICIAN Student in an Organized Health Care Education/Training Program; CONSULT PHYSICIAN Internal Medicine Gastroenterology; EMERGENCY PHYSICIAN Student in an Organized Health Care Education/Training Program; FAMILY PHYSICIAN Family Medicine
PROC: 0W9G3ZZ Drainage of Peritoneal Cavity, Percutaneous Approach (ICD-10-PCS; 2023-07-31)
DX: K70.31 Alcoholic cirrhosis of liver with ascites (principal); E27.40 Unspecified adrenocortical insufficiency; K76.6 Portal hypertension; L03.115 Cellulitis of right lower limb; L03.116 Cellulitis of left lower limb; K21.9 Gastro-esophageal reflux disease without esophagitis; F32.A Depression, unspecified; F41.9 Anxiety disorder, unspecified; F10.10 Alcohol abuse, uncomplicated; D64.9 Anemia, unspecified; E88.09 Other disorders of plasma-protein metabolism, not elsewhere classified; I95.9 Hypotension, unspecified; R60.1 Generalized edema; K70.11 Alcoholic hepatitis with ascites; K80.20 Calculus of gallbladder without cholecystitis without obstruction; I44.7 Left bundle-branch block, unspecified; L40.9 Psoriasis, unspecified; Z88.0 Allergy status to penicillin; Z87.891 Personal history of nicotine dependence; Z87.442 Personal history of urinary calculi
CPT/HCPCS: 88305; 49083; 76700; 80053; 82140; 82150; 82607; 82728; 83540; 83550; 83605; 83615; 83690; 84157; 85014; 85018; 85025; 85027; 85610; 85652; 86140; 87015; 87040; 87070; 87205; 88112; 89051; 93005; 93970; 96374; 97162; 97166; 99285

== ENCOUNTER 2023-08-19 00:57 | Inpatient (IN) | payer BC, SELFPAY ==
[2023-08-18 23:11] VITALS: BP 130/67; BMI 26.1
[2023-08-18 23:24] LABS: % Basophils 1.2 % (0-2); % Eosinophils 2.1 % (0-6); % Immature Granulocytes 0.8 % (0-0.5); % Lymphocytes 21.7 % (20.5-51.1); % Neutrophils 59.2 % (42.2-75.2); Absolute Basophils 0.1 10^3/uL (0-0.2); Absolute Eosinophils 0.2 10^3/uL (0-0.7); Absolute Immature Granulocytes 0.1 10^3/uL (0-0.05); Absolute Lymphocytes 1.9 10^3/uL (1.2-3.4); Absolute Monocytes 1.3 10^3/uL (0.1-0.6); Absolute Neutrophils 5.2 10^3/uL (1.4-6.5); Hematocrit 26.6 % (37.0-47.0); Hemoglobin 8.9 g/dL (12.0-16.0); Mean Corp Hgb Conc. 33.5 g/dL (33.0-37.0); Mean Corpuscular Volume 86.6 fL (81.0-99.0); Mean Platelet Volume 8.4 fL (7.4-10.4); Nucleated Red Blood Cells % 0 %; Platelet Count 336 10^3/uL (130-400); Red Blood Cell Count 3.07 10^6/uL (4.20-5.40); Red Cell Dist. Width 15.9 % (11.5-14.5); White Blood Cell Count 8.7 10^3/uL (4.8-10.8)
[2023-08-18] MEDS: ZOFRAN 4 MG IV (23:24)
[2023-08-18 23:37] LABS: ALT (SGPT) 16 U/L (0-35); AST (SGOT) 45 U/L (14-36); Albumin 2.4 g/dl (3.5-5.0); Alkaline Phosphatase 119 U/L (38-126); Blood Urea Nitrogen 10 mg/dl (7-17); Calcium 8.5 mg/dl (8.4-10.2); Carbon Dioxide 22 mmol/L (22-30); Chloride 107 mmol/L (98-107); Estimated Creatinine Clearance 74 ml/min; Glucose 100 mg/dl (70-99); Lipase 264 U/L (23-300); Potassium 4.1 mmol/L (3.5-5.1); Sodium 130 mmol/L (135-145); Total Bilirubin 1.1 mg/dl (0.2-1.3); Total Protein 5.3 g/dl (6.3-8.2); eGFR > 60.00
[2023-08-18 23:56] LABS: NT-proBNP 154 pg/ml
[2023-08-19] VITALS: BP 128/69
--- NOTE | 2023-08-19 00:17 | ED.GENMED ---
History of Present Illness
General
Chief Complaint: Swelling
Source: patient
Time Seen by Provider: 08/19/23 00:00
Travel History
Have you had any contact with someone who has COVID-19?: No
Do you have any symptoms of coronavirus? Fever > 100 degrees, chills, cough, shortness of breath, sore throat, loss of taste or smell, muscle aches, or headache?: No
History of Present Illness
History of Present Illness:
62-year-old female presents to the emerged from complaining of pain, swelling and tingling bilateral lower extremities. Symptoms seem to begin this morning. She has significant pain when she attempts to walk. No fever or chills. Patient was
hospitalized here at [facility] approximately 2 weeks ago or so for bilateral lower extremity cellulitis. She was treated with cefazolin and converted to Keflex. Symptoms seem to improve. Patient has history of cirrhosis for which she is
typically followed at [facility]. She does have a paracentesis performed weekly basis. Last paracentesis was 2 days ago.
Past History
Past History
ED Past Medical History: GERD and Psychiatric (anxiety, depression)
ED Past Surgical History: Other
Social History
Tobacco: Other
Alcohol: Chronic alcoholic
Drug: Other
Personal:
Living: with family
Employment: Other
Phy Exam
Physical Exam
Physical Exam:
General: Awake, Alert, Oriented X3. No acute distress.
Vitals: unremarkable
Head: Atraumatic
Eyes: Pupils equal, EOMI
Throat: Airway intact, no exudates
Neck: Trachea midline
Lungs: Clear and equal b/l
Heart: Regular rate, no murmurs
Abd: Soft, mild distention, no tenderness palpation, No pulsatile mass
Neuro: Nonfocal
Skin: Warm, dry, no rash
Extremities: 2+ edema bilateral lower extremities, both lower extremities are erythematous and tender to touch from about the tibial tuberosity down to the feet
Scores
Heart Failure Risk
Heart Failure Risk Score: Not Applicable
Course
Orders/Labs/Results
Orders:
Orders
08/18/23 23:19
CBC/With Diff [Complete Blood Count/With Diff] Urgent
CMP [Comprehensive Metabolic Panel] Urgent
Lipase Urgent
08/18/23 23:22
Ondansetron Injectable [Zofran] 4 mg .ROUTE .STK-MED ONE
08/18/23 23:23
Ondansetron Injectable [Zofran] 4 mg IV NOW STA
08/18/23 23:24
Pro-BNP [NT-proBNP] Urgent
08/19/23 00:38
CeFAZolin 2 GRAM [Ancef] 2 grams in 10 ml IV NOW
08/19/23 00:48
Admit/Transfer Patient As Directed
Co-Sign Provider:
Level of Care: Inpatient admission
Assign to:: Medical/Surgical
Physician / Group: [email or web address]
Diagnosis: B/l lower extremity cellulitis: recurrent
Reason for Hospitalization: B/l lower extremity cellulitis: recurrent
Expected length of stay greater than two midnights?: Yes
ELOS- Estimated Length of Stay in days: 3
I certify the patient meets the requirements for IP care: Yes
08/19/23 00:50
Code Status As Directed
Resuscitation Status: Full Code
08/19/23 01:00
Flush (0.9% Sodium Chloride) [Flush (Nss)] See Dose Instructions IV PER PROTOCOL
Abnormal Lab Results
08/18/23
23:19
RBC 3.07 L 10^6/uL
(4.20-5.40)
Hgb 8.9 L g/dL
(12.0-16.0)
Hct 26.6 L %
(37.0-47.0)
RDW 15.9 H %
(11.5-14.5)
Abs Immat Gran (auto) 0.1 H 10^3/uL
(0-0.05)
Absolute Monos (auto) 1.3 H 10^3/uL
(0.1-0.6)
Immature Gran % 0.8 H %
(0-0.5)
Monocytes % 15.0 H %
(1.7-9.3)
Sodium 130 L mmol/L
(135-145)
Creatinine 0.5 L mg/dL
(0.6-1.0)
Glucose 100 H mg/dl
(70-99)
AST 45 H U/L
(14-36)
Total Protein 5.3 L g/dl
(6.3-8.2)
Albumin 2.4 L g/dl
(3.5-5.0)
08/18/23 23:19
08/18/23 23:19
Vital Signs
Initial and Last Documented VS:
Initial Vital Signs
Temp Pulse Resp BP Pulse Ox
98.2 F 92 18 130/67 100
08/18/23 23:11 08/18/23 23:11 08/18/23 23:11 08/18/23 23:11 08/18/23 23:11
Last Documented Vital Signs
Temp Pulse Resp BP Pulse Ox
98.2 F 87 25 130/67 100
08/18/23 23:11 08/18/23 23:30 08/18/23 23:30 08/18/23 23:11 08/18/23 23:31
MDM/Problems Addressed
Differential Diagnosis Includes:
Cellulitis, venous stasis,
MDM/Problems Addressed:
Physical exam shows significant erythema and tenderness. Patient recently hospitalized for cellulitis. Suspect it is returning now that she stopped antibiotics. Comorbidities include cirrhosis. Will initiate IV antibiotics. Patient will be
hospitalized for close monitoring
Chronic conditions affecting care: Other (Cirrhosis)
*Pulse Oximetry
Patient hypoxic: no
*Critical Care Note
Total Time (30-74mins, 75-104mins- exclusive of procedures): Not Applicable
Data Reviewed
Review of Other/Old Records Reveals: Discharge Summary (From hospitalization in July)
Patient Management
Social determinants of health affecting care: Living situation and Poor outpatient follow-up
ED Attending Note
-
Portions of this chart may have been created with voice recognition software.� Occasional wrong word or��sound alike� substitutions may have occurred due to the inherent limitations of voice recognition software.
Discharge Plan
Departure
Patient Disposition: Admit
Date of Disposition: 08/19/23
Time of Disposition: 00:30
Presentation/result/management discussed w/ accepting MD/DO: Hospitalist
Condition: Fair
Discharge Problem:
Cellulitis
Interventions
Interventions:
*Risk Screen - Suicide Last Done: 08/18/23 23:11
*General Assessment Last Done: 08/18/23 23:11
*Neglect/Abuse Screening Last Done: 08/18/23 23:11
ED- Fall Risk Assessment Last Done: 08/18/23 23:31
*ED COVID-19 Vaccine History Last Done: 08/18/23 23:11
GU-Hikrao-Hlyouboiep Assessment Last Done: 08/18/23 23:31
ED- Cardiac Assessment Last Done: 08/18/23 23:31
ED- Pulmonary Assessment Last Done: 08/18/23 23:31
ED-Skin Assessment Last Done: 08/18/23 23:31
--- NOTE | 2023-08-19 00:43 | HPS.HSE ---
Family Physician
-
Family Physician: Ramirez Flor
Chief Complaint
-
b/l leg pain
History of Present Illness
62F HX former ETOH use disorder, ETOH associated Cirrhosis, Ascites, Portal HTN, Anasarca due to severe hypoalbuminemia
Seen at ER for evaluation of red, painful swollen b/l Chelsy. Recent admission with similar Dxed improved on IV Cefazolin followed by Keflex for total 5 days.
HX ETOH cirrhosis
- typically followed at [facility]
- paracentesis performed weekly basis
- Last paracentesis was 2 days ago.
Medical History
Past Medical History
Past Medical History: Reports Other (Recent former ETOH use disorder HX Alcoholic hepatitis GERD Anxiety, depression, Psoriasis)
Past Surgical History: Reports Other
Social History
Tobacco: Non-smoker
Alcohol: Former (Used to drink 1/5 of vodka daily for many years. )
Drug: None
Family History
Family History: Not pertinent
Allergies / Home Medications
Allergies reflects when Allergies were last updated in [facility].
Home Medications with original date entered in [facility]
Allergy/Medication List:
Allergies
Allergy/AdvReac Type Severity Reaction Status Date / Time
Penicillins Allergy Unknown Verified 08/18/23 23:17
Home Medications
paroxetine HCl 20 mg tablet 20 mg PO DAILY Mental Health/Anxiety 02/27/21
cholecalciferol (vitamin D3) 25 mcg (1,000 unit) capsule (Vitamin D3) 75 mcg PO QPM Supplement 07/31/23
donepezil 10 mg tablet 10 mg PO QPM cognition 07/31/23
folic acid 1 mg tablet 1 mg PO QPM supplement 07/31/23
spironolactone 25 mg tablet 25 mg PO BID Fluid Retention/Swelling 07/31/23
thiamine HCl (vitamin B1) 300 mg PO QPM supplement 07/31/23
cephalexin 500 mg capsule 500 mg PO QID #20 caps 08/02/23
pantoprazole 40 mg tablet,delayed release 40 mg PO DAILY #30 tabs 08/02/23
rifaximin 550 mg tablet (Xifaxan) 550 mg PO BID #60 tabs 08/02/23
Review of Systems
-
Constitutional: Reports No Symptoms
EENT: Reports No Symptoms
Respiratory: Reports No Symptoms
Cardiac: Reports No Symptoms
Abdomen/GI: Reports No Symptoms
: Reports No Symptoms
Musculoskeletal: Reports No Symptoms
Skin: Reports See HPI
Neurological: Reports No Symptoms
Endocrine: Reports No Symptoms
Hematologic/Lymphatic: Reports No Symptoms
Psych: Reports No Symptoms
Physical Exam
Vital Signs
Vital Signs
Temp Pulse Resp BP Pulse Ox
98.2 F 87 25 130/67 100
08/18/23 23:11 08/18/23 23:30 08/18/23 23:30 08/18/23 23:11 08/18/23 23:31
Physical Exam
General: No Apparent Distress, Comfortable and Conversant
HEENT: NormoCephalic and Moist mucous membranes
Respiratory: Clear; No Wheezes, Rales or Rhonchi
Cardiac: S1/S2 and Regular Rhythm
Breast: Deferred by me
Rectal: Deferred by Provider
Genito-urinary: Deferred by me
Musculoskeletal: Edema, Left Lower Extremity and Edema, Right Lower Extremity
Skin: Other (wram, red , b/l leg edma with lymphedenatous changes ))
Neuro: AO x 3
Psych: Calm
Laboratory Results
-
08/18/23 23:19
08/18/23 23:19
Laboratory Results
Total Bilirubin 1.1 mg/dl (0.2-1.3) 08/18/23 23:19
AST 45 U/L (14-36) H 08/18/23 23:19
ALT 16 U/L (0-35) 08/18/23 23:19
Alkaline Phosphatase 119 U/L (38-126) 08/18/23 23:19
Lipase 264 U/L (23-300) 08/18/23 23:19
Data Reviewed
-
Lab Data: Labs Reviewed by me
Old Records: Reviewed
Impression/Plan
-
Data
WCC 8.7
Hgb 8.9 baseline range hi8s to low 9s
nl MCV
nl Platelet
Na 130
nl Cr
nl eGFR
Alb 2.4
07/31/23 Duplex US LE: No evidence of deep venous thrombosis of the lower extremities bilaterally.
Last hospitalist admission: 07/30- 08/01 DDX: bilateral lower extremity cellulitis
ASSESSMENT & PLAN
B/l lower extremity cellulitis: recurrent
Associated painful warm erythematous leg with lymphedematous changes
HD stable, afebrile, nl WCC
- empiric IV Cefazolin
- BCx
- f/u clinical response
Decompensated Cirrhosis with PHT, ascites : ETOH associated
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
- on Rifaximin
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
HX ETOH use disorder- stopped for several months
- Observe
GERD
- PO PPI
NC NC Anemia
HX GERD
-stable Hg, no e/o active bleeding
-on Protonix
Anxiety/depression
- cont Paxil
DVT Px: SCD
Code: Full
IP MS
[2023-08-19] MEDS: ANCEF 10 IV (00:55)
[2023-08-19] MEDS: FLUSH (NSS) 1 FLUSH IV (00:55)
[2023-08-19 01:00] VITALS: BP 122/65
[2023-08-19 02:47] VITALS: BP 126/71; BMI 27.3
--- NOTE | 2023-08-19 03:29 | PTCARENOTE ---
Received pt from the ED via stretcher, pt ambulated to hospital bed with assist x1, unsteady on her feet, c/o numbness/tingling to feet and ankles. Pt AAOx3, VSS, b/l lower extremities red and warm with +1-2 edema, remainder of assessment as
documented. Pt scheduled for IV Ancef in the AM s/p blood cultures. Discussed POC with pt, no questions at this time. Pt oriented to unit and call raymond, resting comfortably in bed at this time.
[2023-08-19 05:09] LABS: Hematocrit 26.2 % (37.0-47.0); Hemoglobin 8.7 g/dL (12.0-16.0); Mean Corp Hgb Conc. 33.2 g/dL (33.0-37.0); Mean Corpuscular Hgb 29.1 pg (27.0-31.0); Mean Corpuscular Volume 87.6 fL (81.0-99.0); Mean Platelet Volume 8.6 fL (7.4-10.4); Platelet Count 369 10^3/uL (130-400); Red Blood Cell Count 2.99 10^6/uL (4.20-5.40); Red Cell Dist. Width 15.9 % (11.5-14.5); White Blood Cell Count 7.9 10^3/uL (4.8-10.8)
[2023-08-19 05:21] LABS: Ammonia 28 umol/L (9-30); INR 1.29; PT 15.9 Sec (11.4-14.6)
[2023-08-19 05:35] LABS: ALT (SGPT) 15 U/L (0-35); AST (SGOT) 38 U/L (14-36); Albumin 2.3 g/dl (3.5-5.0); Alkaline Phosphatase 107 U/L (38-126); Blood Urea Nitrogen 10 mg/dl (7-17); Calcium 8.7 mg/dl (8.4-10.2); Carbon Dioxide 25 mmol/L (22-30); Chloride 106 mmol/L (98-107); Estimated Creatinine Clearance 75 ml/min; Glucose 83 mg/dl (70-99); Potassium 4.6 mmol/L (3.5-5.1); Sodium 134 mmol/L (135-145); Total Bilirubin 1.1 mg/dl (0.2-1.3); Total Protein 5.1 g/dl (6.3-8.2); eGFR > 60.00
[2023-08-19 06:00] VITALS: BMI 27.0
[2023-08-19 06:22] LABS: Hepatitis C Antibody Negative (Negative)
[2023-08-19 07:00] VITALS: BP 122/59
[2023-08-19] MEDS: PAXIL 20 MG PO (08:22)
[2023-08-19] MEDS: XIFAXAN 550 MG PO ×2 (08:22→21:26)
[2023-08-19] MEDS: ALDACTONE 25 MG PO ×2 (08:22→21:30)
[2023-08-19] MEDS: PROTONIX 40 MG PO (08:23)
[2023-08-19] MEDS: ANCEF 5 IV ×2 (08:23→17:47)
--- NOTE | 2023-08-19 09:55 | W.PN.HOSP.TC ---
Today's Communication/Plan
-
PTOT
Ancef
Lasix
COmpression therapy legs
Assessment / Plan
Assessment / Plan
62-year-old with bilateral lower extremity redness. July 14.
CVS: S1-S2 normal
Chest: CTA B/L
Abdomen: Soft, NT / Bowel sounds present
Extremities: B/L LE edema, normal pulses
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
# Lower extremity cellulitis
Continue Ancef
Await cultures and follow clinical response
Completed a course of Keflex as OP
# Mild hyponatremia-improving
# Decompensated cirrhosis with history of portal hypertension, ascites alcohol-related
History of synthetic dysfunction with severe hypoalbuminemia and anasarca
On Xifaxan, Aldactone
Gets weekly paracentesis last one was on 08/16/23 per pt.
# Alcohol use disorder
Stopped month and half ago per daughter
(Pt says years ago which is not true)
#H/O Wernicke /Korsakoff's syndrome
Dementia
' Her Brain off and On ' per daughter
Daughter says she has refused treatment in the past
# GERD-continue PPI
# Anemia-check iron studies
# Anxiety and depression-Daughter doesn't think she is on Paxil. Not any more as she was sleepy.
Daughter doesn't think she is depressed.
# Fatty liver likely secondary alcohol use
# Psoriasis
# Cholelithiasis
# Diverticulosis
# Ex-smoker
# DVT prophylaxis-SCDs
# Full code
D/W RN at bed side
Discussed with patient's daughter Concetta on the phone. Updated regarding patient's condition.
She stated that the patient has memory issues. Also has been refusing to follow with liver specialist and did not want to follow the recommendations. Her had taken out in the past that she said that she wants to drink until that issue
dies. Children have taken over her care now. Granddaughter is planning to moving with the patient. She is a nurse and will take care of the patient.
Daughter confirmed that the patient is on Aricept, Xifaxan, Aldactone, vitamin B vitamin D. The rest of the medicines she will confirm later. She also stated that patient is not on Paxil at present
Discussed about starting low dose of Neurontin HS. She agrees.
Time spent 51 min
Anticipated Discharge: Within 24 hours
Subjective/Interval History
-
Date of Service: August 19, 2023
Objective Data
-
Labs:
Laboratory Results
08/18/23 08/19/23
23:19 04:56
WBC 8.7 7.9
Hgb 8.9 L 8.7 L
Hct 26.6 L 26.2 L
Plt Count 336 369
PT 15.9 H
INR 1.29
Sodium 130 L 134 L
Potassium 4.1 4.6
Chloride 107 106
Carbon Dioxide 22 25
BUN 10 10
Creatinine 0.5 L 0.5 L
Glucose 100 H 83
Calcium 8.5 8.7
Total Bilirubin 1.1 1.1
AST 45 H 38 H
ALT 16 15
Alkaline Phosphatase 119 107
Vital Signs:
Vital Signs
Temp Pulse Resp BP Pulse Ox
98.4 F 85 16 122/59 97
08/19/23 07:00 08/19/23 08:22 08/19/23 07:00 08/19/23 08:22 08/19/23 07:00
I&O
08/18/23 08/19/23 08/20/23
06:59 06:59 06:59
Intake Total 380 / 380
Balance 380 / 380
--- NOTE | 2023-08-19 10:42 | CM ---
Addendum entered by Mariana Hyatt 08/19/23 10:49:
Per patient, No history of psychiatric hospitalizations. Does have anxiety and depression, ETOH abuse and past SI.
Original Note:
Initial assessment completed with patient who lives alone in a 2 story home with B/B on and 1/2 bath on , one step to enter. 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 Has and uses a RW, no services in the
home. Pharmacy is [id number] [address] in [place], PCP is Dr. Ramirez Flor. No HC POA. Anticipate home with VN, will follow for possible need for infusion services.
[2023-08-19 12:59] LABS: Iron 48 ug/dl (37-170); Magnesium 1.6 mg/dl (1.6-2.3)
[2023-08-19 13:08] LABS: Percent Saturation 17 % (20-50); Total Iron Binding Capacity 274 ug/dl (265-497)
[2023-08-19 13:30] LABS: Ferritin 11.7 ng/ml (11.1-264.0)
[2023-08-19] MEDS: LASIX 20 MG IV (13:33)
[2023-08-19] MEDS: VITAMIN B1 200 MG PO (13:33)
[2023-08-19 13:44] LABS: Vitamin B12 556 pg/ml (239-931)
[2023-08-19 15:00] VITALS: BP 122/75
[2023-08-19] MEDS: NEURONTIN 100 MG PO (21:26)
[2023-08-19] MEDS: ARICEPT 10 MG PO (21:29)
[2023-08-19 23:15] VITALS: BP 124/69
[2023-08-20] MEDS: ANCEF 5 IV ×3 (00:34→15:51)
[2023-08-20 03:48] VITALS: BMI 26.0
[2023-08-20 06:00] VITALS: BMI 26.0
[2023-08-20 07:42] VITALS: BP 107/56
[2023-08-20] MEDS: VITAMIN B1 200 MG PO (09:26)
[2023-08-20] MEDS: XIFAXAN 550 MG PO ×2 (09:26→20:59)
[2023-08-20] MEDS: PROTONIX 40 MG PO (09:26)
[2023-08-20] MEDS: ALDACTONE 25 MG PO ×2 (09:26→20:59)
--- NOTE | 2023-08-20 10:29 | W.PN.HOSP.TC ---
Addendum entered and electronically signed by Yelena Castillo MD 08/21/23 13:37:
.
Original Note:
Today's Communication/Plan
-
Await labs
If okay will try one dose of lasix
PT OT eval
RAY bandages to legs
Possible discharge tomorrow
Assessment / Plan
Assessment / Plan
62-year-old with bilateral lower extremity redness. July 14.
CVS: S1-S2 normal
Chest: CTA B/L
Abdomen: Soft, NT / Bowel sounds present
Extremities: B/L LE edema mild , normal pulses, mild redness
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
# Lower extremity cellulitis
Continue Ancef
Await cultures and follow clinical response
Completed a course of Keflex as OP
# Mild hyponatremia-improving
# Decompensated cirrhosis with history of portal hypertension, ascites alcohol-related
History of synthetic dysfunction with severe hypoalbuminemia and anasarca
On Xifaxan, Aldactone
Gets weekly paracentesis last one was on 08/16/23 per pt.
# Alcohol use disorder
Stopped month and half ago per daughter
(Pt says years ago which is not true)
#H/O Wernicke /Korsakoff's syndrome
Dementia
' Her Brain off and On ' per daughter
Daughter says she has refused treatment in the past
# GERD-continue PPI
# Anemia-check iron studies
# Anxiety and depression-Daughter doesn't think she is on Paxil. Not any more as she was sleepy.
Daughter doesn't think she is depressed.
# Fatty liver likely secondary alcohol use
# Psoriasis
# Cholelithiasis
# Diverticulosis
# Ex-smoker
# DVT prophylaxis-SCDs
# Full code
D/W RN at bed side
08/19/23-Discussed with patient's daughter Concetta on the phone. Updated regarding patient's condition.
She stated that the patient has memory issues. Also has been refusing to follow with liver specialist and did not want to follow the recommendations. Her had taken out in the past that she said that she wants to drink until that issue
dies. Children have taken over her care now. Granddaughter is planning to moving with the patient. She is a nurse and will take care of the patient.Discussed about starting low dose of Neurontin HS. She agrees.
Anticipated Discharge: Within 24 hours
Subjective/Interval History
-
Date of Service: August 20, 2023
Objective Data
-
Labs:
Laboratory Results
08/20/23
10:28
WBC Pending
Hgb Pending
Hct Pending
Plt Count Pending
Sodium Pending
Potassium Pending
Chloride Pending
Carbon Dioxide Pending
BUN Pending
Creatinine Pending
Glucose Pending
Calcium Pending
Vital Signs:
Vital Signs
Temp Pulse Resp BP Pulse Ox
98.7 F 81 18 107/56 94
08/20/23 07:42 08/20/23 07:42 08/20/23 07:42 08/20/23 09:26 08/20/23 10:09
I&O
08/19/23 08/20/23 08/21/23
06:59 06:59 06:59
Intake Total 380 / 380 1200 / 1200
Output Total 2 / 2
Balance 380 / 380 1198 / 1198
[2023-08-20 10:41] LABS: Hematocrit 28.5 % (37.0-47.0); Hemoglobin 9.4 g/dL (12.0-16.0); Mean Corpuscular Hgb 28.7 pg (27.0-31.0); Mean Corpuscular Volume 87.2 fL (81.0-99.0); Mean Platelet Volume 8.5 fL (7.4-10.4); Platelet Count 368 10^3/uL (130-400); Red Blood Cell Count 3.27 10^6/uL (4.20-5.40); White Blood Cell Count 5.5 10^3/uL (4.8-10.8)
[2023-08-20 10:52] VITALS: BP 111/58; PULSE 82; O2SAT 99
[2023-08-20 10:56] LABS: Blood Urea Nitrogen 9 mg/dl (7-17); Calcium 8.5 mg/dl (8.4-10.2); Carbon Dioxide 25 mmol/L (22-30); Chloride 106 mmol/L (98-107); Estimated Creatinine Clearance 74 ml/min; Glucose 131 mg/dl (70-99); Potassium 3.9 mmol/L (3.5-5.1); Sodium 134 mmol/L (135-145); eGFR > 60.00
[2023-08-20] MEDS: KCL 10 MEQ PO (11:45)
[2023-08-20] MEDS: MAGNESIUM OXIDE 500 MG PO (11:45)
[2023-08-20] MEDS: LASIX 20 MG IV (11:46)
--- NOTE | 2023-08-20 14:31 | PTCARENOTE ---
pt oob to chair with x1 assist. pt had episode of heavy urine incontinence this afternoon. pt completed oral care and arturo care with this nurse.
--- NOTE | 2023-08-20 14:42 | CM ---
Remains in IV/AB. Discharge Plan of Care: Home with VN and PT/OT services. Patient preference is . Will send referral.
[2023-08-20 15:24] VITALS: BP 123/65
[2023-08-20] MEDS: ARICEPT 10 MG PO (20:59)
[2023-08-20] MEDS: NEURONTIN 100 MG PO (21:00)
[2023-08-20 23:00] VITALS: BP 119/57
[2023-08-21] MEDS: ANCEF 5 IV ×2 (00:06→08:39)
[2023-08-21 04:12] VITALS: BMI 25.9
[2023-08-21 07:05] VITALS: BP 108/54
[2023-08-21] MEDS: VITAMIN B1 200 MG PO (08:39)
[2023-08-21] MEDS: ALDACTONE 25 MG PO (08:39)
[2023-08-21] MEDS: PROTONIX 40 MG PO (08:39)
[2023-08-21] MEDS: XIFAXAN 550 MG PO (08:39)
[2023-08-21] MEDS: MAGNESIUM OXIDE 500 MG PO (08:39)
--- NOTE | 2023-08-21 09:31 | W.PN.HOSP.TC ---
Today's Communication/Plan
-
Discharge
Assessment / Plan
Assessment / Plan
62-year-old with bilateral lower extremity redness. July 14.
Late documentation. Patient was seen only
CVS: S1-S2 normal
Chest: CTA B/L
Abdomen: Soft, NT / Bowel sounds present
Extremities: B/L LE edema better, normal pulses, redness better
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
# Lower extremity cellulitis
Continue Ancef
Await cultures and follow clinical response
Completed a course of Keflex as OP
# Mild hyponatremia-improving
# Decompensated cirrhosis with history of portal hypertension, ascites alcohol-related
History of synthetic dysfunction with severe hypoalbuminemia and anasarca
On Xifaxan, Aldactone
Gets weekly paracentesis last one was on 08/16/23 per pt.
# Alcohol use disorder
Stopped month and half ago per daughter
(Pt says years ago which is not true)
#H/O Wernicke /Korsakoff's syndrome
Dementia
' Her Brain off and On ' per daughter
Daughter says she has refused treatment in the past
# GERD-continue PPI
# Anemia-
# Anxiety and depression-Daughter doesn't think she is on Paxil. Not any more as she was sleepy.
Daughter doesn't think she is depressed.
# Fatty liver likely secondary alcohol use
# Psoriasis
# Cholelithiasis
# Diverticulosis
# Ex-smoker
# DVT prophylaxis-SCDs
# Full code
D/W Daughter on the phone and updated. AwRE b1 PENDING AND NEEDS TO f/u WITH pcp
Discussed about as needed Lasix, following up with hematology. Information for Dr. Cohen given.
Her weight is down. Patient may be able to wait for the paracentesis this Saturday.
Discussed with nursing
Echo has since been done and noted the results. No heart failure
Discharge coordination time 36 minutes
Anticipated Discharge: Today
Subjective/Interval History
-
Date of Service: August 21, 2023
Objective Data
-
Vital Signs:
Vital Signs
Temp Pulse Resp BP Pulse Ox
98.1 F 87 16 108/54 96
08/21/23 07:05 08/21/23 08:39 08/21/23 07:05 08/21/23 08:39 08/21/23 07:05
I&O
08/20/23 08/21/23 08/22/23
06:59 06:59 06:59
Intake Total 1200 / 1200 1260 / 1260
Output Total 2 / 2
Balance 1198 / 1198 1260 / 1260
--- NOTE | 2023-08-21 13:40 | W.DS.TRANS ---
Addendum entered and electronically signed by Yelena Castillo MD 08/21/23 16:43:
Dictation- [id number]
Original Note:
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
-
Discharge Instructions:
Discharge Diagnosis/Procedures Lower extremity cellulitis, mild hyponatremia,
cirrhosis, alcohol abuse in the past, dementia
cognitive dysfunction, GERD, fatty liver,
gallstones, diverticulosis
Diet 2 Gram Sodium,Restrict fluids to 64 oz
Activity As tolerated
Driving Restrictions No driving
Other Services VN
Instructions:
Stand-Alone Forms:
Changes to Home Medications: Yes
Discharge Medications:
DC Medications w/original date entered in [employer]
cholecalciferol (vitamin D3) 25 mcg (1,000 unit) capsule (Vitamin D3) 75 mcg PO QPM Supplement 07/31/23
donepezil 10 mg tablet 10 mg PO QPM cognition 07/31/23
folic acid 1 mg tablet 1 mg PO QPM supplement 07/31/23
spironolactone 25 mg tablet 25 mg PO BID Fluid Retention/Swelling 07/31/23
thiamine HCl (vitamin B1) 300 mg PO QPM supplement 07/31/23
cefdinir 300 mg capsule 300 mg PO BID Skin issues #6 caps 08/21/23
furosemide 20 mg tablet (Lasix) 20 mg PO .mothu PRN swelling #30 tabs 08/21/23
gabapentin 100 mg capsule 100 mg PO HS Neurological Condition #30 caps 08/21/23
magnesium oxide 500 mg PO DAILY Supplement #30 tabs 08/21/23
pantoprazole 40 mg tablet,delayed release 40 mg PO DAILY Gastrointestinal issue #30 tabs 08/21/23
rifaximin 550 mg tablet (Xifaxan) 550 mg PO BID Gastrointestinal issue #60 tabs 08/21/23
Home Medication Changes
new
cefdinir 300 mg capsule 300 mg PO BID Skin issues #6 caps 08/21/23
furosemide 20 mg tablet (Lasix) 20 mg PO .mothu PRN swelling #30 tabs 08/21/23
gabapentin 100 mg capsule 100 mg PO HS Neurological Condition #30 caps 08/21/23
magnesium oxide 500 mg PO DAILY Supplement #30 tabs 08/21/23
Pending Results: Yes
Additional Pending Results:
B1 level
[2023-08-21 14:13] VITALS: BP 129/82
--- NOTE | 2023-08-21 15:19 | STATUS ---
SITUATION:
BACKGROUND:
ASSESSMENT:
RECOMMENDATION:
--- NOTE | 2023-08-21 15:19 | CM ---
Patient has been medically cleared for discharge to home with [facility] V[facility] and PT services. Niece will transport home.
[2023-08-24 00:09] LABS: Vitamin B1, Whole Blood 239 nmol/L (70-180)
== END 2023-08-21 15:30 | disposition home health service (06) | DRG 603 ==
LOC: 2 NORTH 00:57
PROVIDERS: ADMITTING PHYSICIAN Internal Medicine; ATTENDING PHYSICIAN Hospitalist; EMERGENCY PHYSICIAN Emergency Medicine; FAMILY PHYSICIAN Family Medicine
DX: L03.115 Cellulitis of right lower limb (principal); E87.1 Hypo-osmolality and hyponatremia; K76.6 Portal hypertension; F03.93 Unspecified dementia, unspecified severity, with mood disturbance; L03.116 Cellulitis of left lower limb; K70.31 Alcoholic cirrhosis of liver with ascites; F32.A Depression, unspecified; K21.9 Gastro-esophageal reflux disease without esophagitis; K76.0 Fatty (change of) liver, not elsewhere classified; F10.26 Alcohol dependence with alcohol-induced persisting amnestic disorder; L40.9 Psoriasis, unspecified; K80.20 Calculus of gallbladder without cholecystitis without obstruction; K57.30 Diverticulosis of large intestine without perforation or abscess without bleeding; E88.09 Other disorders of plasma-protein metabolism, not elsewhere classified; D64.9 Anemia, unspecified; F41.9 Anxiety disorder, unspecified; Z60.2 Problems related to living alone; Z88.0 Allergy status to penicillin; Z63.4 Disappearance and death of family member; Z87.891 Personal history of nicotine dependence
CPT/HCPCS: 80048; 80053; 82140; 82607; 82728; 83540; 83550; 83690; 83735; 83880; 84425; 85025; 85027; 85610; 86803; 87040; 87070; 93306; 96374; 97163; 97166; 99285

== ENCOUNTER 2023-10-24 23:11 | Inpatient (IN) | payer OTHER, SELFPAY ==
[2023-10-24] VITALS (48 sets, daily range): BP systolic 106–173; BP diastolic 52–91
[2023-10-24 19:13] LABS: Glucose - Point of Care 220 mg/dl (70-99)
[2023-10-24] MEDS: DIPRIVAN 100 IV (19:21)
--- NOTE | 2023-10-24 19:28 | ED.GENMED ---
History of Present Illness
General
Chief Complaint: CODE
Source: patient
Exam Limitations: clinical condition
Time Seen by Provider: 10/24/23 19:11
Nursing documentation reviewed up to this point in time: agreed with
Travel History
Have you had any contact with someone who has COVID-19?: Unable to Answer
Do you have any symptoms of coronavirus? Fever > 100 degrees, chills, cough, shortness of breath, sore throat, loss of taste or smell, muscle aches, or headache?: Unable to Answer
History of Present Illness
History of Present Illness:
63-year-old female with a past medical history of distant alcohol abuse and cirrhosis of the liver with recurrent ascites, hypertension, GERD who presents to the emergency room via EMS status postcardiac arrest. History obtained from EMS and family
members. Patient was reportedly in her normal state of health today. She had her weekly paracentesis at [facility] earlier in the day. Apparently her grandson was staying with her this evening doing some work. He says that he was getting
ready to leave and when he went to say [facility] he found her face down on a cushion unresponsive. He says that he had seen her 25 minutes earlier and she appeared normal. Grandson called 911 who instructed on how to check a pulse and he could not
find a pulse and so CPR was initiated. Per EMS they arrived approximately 3 to 5 minutes later and on their arrival patient was asystole and pulseless. ACLS was initiated she was intubated and she was given 3 total rounds of IV epinephrine. ROSC
obtained after an additional 10 minutes of CPR for a total of roughly 15 minutes of CPR. Patient arrives to us intubated and unresponsive. Per EMS she was hypotensive after obtaining ROSC and received a total of 100 mcg of IV epinephrine as for
blood pressure support on the way to the hospital.
Past History
Past History
ED Past Medical History: GERD and Psychiatric (anxiety, depression)
ED Past Surgical History: Other
Social History
Tobacco: Other
Alcohol: Chronic alcoholic
Drug: Other
Personal:
Living: with family
Employment: Other
Review of Systems
Review of Systems
Unable to obtain full review of systems at this time due to: due to acuity
All Other Systems: Not applicable
Phy Exam
Physical Exam
Physical Exam:
General: Intubated and unresponsive
Head: Normocephalic, atraumatic
Eyes: Conjunctiva normal, pupils round and sluggishly reactive to light bilaterally
Throat: Intubated with some frothy secretions
Neck: Trachea midline, right external jugular IV in place
Lungs: Patient has rhonchorous breath sounds throughout all lung napier; she is breathing with the ventilator at backup rate of 14
Heart: Tachycardia with regular rhythm, no murmurs, gallops, or rubs
Abd: Soft, slightly distended with positive fluid wave
Neuro: Unresponsive, round and sluggishly reactive pupils, no spontaneous movements initially
Skin: No signs of trauma
Extremities: Good pulses in all extremities, no significant edema
Scores
Heart Failure Risk
Heart Failure Risk Score: Not Applicable
Heart Score for Chest Pain Patients
STEMI patient?: Not applicable
Withdrawal Assessment of Alcohol
Withdrawal Assessment Completed?: Not applicable
Course
Orders/Labs/Results
Orders:
Orders
10/24/23 19:11
NORepinephrine 4 MG/250 ML [Levophed] 4 mg in 250 ml .ROUTE .STK-MED
10/24/23 19:12
Electrocardiogram (*1) Urgent
Reason for Study: Abnormal EKG
Urinalysis Reflex To Culture Urgent
Date Specimen was Collected: 10/24/23
Time Specimen was Collected: 19:12
10/24/23 19:13
EKG- Treatment ONCE
Test Result ONCE
10/24/23 19:14
CR Chest Portable - 1 View Urgent
Comment:
Reason For Exam: intubated, post code
Reason Study Needs to be Portable: Unable to Transport
10/24/23 19:15
CT Head W/o Iv Contrast Urgent
Comment:
Reason For Exam: unresponsive, post code
10/24/23 19:16
Type+Screen Urgent
ABG [Arterial Blood Gas] Urgent
%Oxygen/Room Air: 95
Alcohol Urgent
COVID-19 Antigen Urgent
Source: Nasal Swab
Complete Blood Count/With Diff Urgent
Comprehensive Metabolic Panel Urgent
HCG, Serum Qualitative Screen Urgent
Lactate Level [Lactic Acid] Urgent
Lipase Urgent
PTT Urgent
Comment: ADD ON
Prothrombin Time Urgent
Troponin I Urgent
Blood Culture Q30M
LEXY Source: Blood/Venous
Specimen Description:
Blood Culture Q30M
LEXY Source: Blood/Venous
Specimen Description:
10/24/23 19:26
Add On- LAB Urgent
Tests Added?: alcohol
CT Chest/abd/pel W Iv Cont Urgent
Comment:
Reason For Exam: unresponsive, cardiac arrest, distended abd, hypot
10/24/23 20:16
Troponin I Urgent
10/24/23 20:33
Cefepime HCl [Maxipime] 1,000 mg IV NOW STA
10/24/23 20:34
Heparin 3,800 units IV NOW STA
Nursing to Place Non Medication Order As Directed
Physician Order: PTT 6 hours after initial start of Heparin infusion
10/24/23 20:45
Heparin 87312 Units/250 ml 25,000 units in 250 ml IV PER PROTOCOL
Weight to be used for heparin protocol in kilograms (kg):: 63.2
Protocol:: Cardiac Tx/Acute Coronary
PTT Goal Range to be used:: PTT 73 to 111 seconds
Order type:: Initial
INITIAL Infusion Dose (UNITS/KG/hr) & then follow protocol:: 15 units/kg/hr
Infusion Dose in UNITS/hr & then follow protocol (UNITS/hr):: 950
INFUSION RATE in mL/hr & then follow protocol (mL/hr):: 9.5
PTT less than or equal to 64 seconds:: Increase rate by 200 units/hr (+ 2 mL/hr)
PTT 64.1 to 72.9 seconds:: Increase rate by 100 units/hr (+ 1 mL/hr)
PTT 73 to 111 seconds:: Target Range. No change in rate.
PTT 111.1 to 130.9 seconds:: Decrease rate by 100 units/hr (- 1 mL/hr)
PTT 131 to 199.9 seconds:: HOLD for 1 hr. Then decrease rate by 200 units/hr (- 2 mL/hr)
PTT greater than or equal to 200 seconds:: HOLD for 2 hrs & Notify Provider. Then decrease by 200 units/hr (-
2 mL/hr)
Lab follow-up:: Each change, PTT q6h until 2 consecutive are therapeutic. Then PTT
daily.
10/24/23 20:54
Sterile Water [Sterile Water For Injection] 20 ml .ROUTE .STK-MED
10/24/23 20:58
Vancomycin [Vancocin] 1,250 mg 0.9% Sodium Chloride 250 ml [Nss] 250 ml IV NOW
10/24/23 21:54
Triglycerides Routine
Comment: baseline levels with propofol infusion
Levetiracetam Injectable [Keppra] 1,000 mg IV NOW STA
Propofol 1,000,000 Mcg/100 ml [Diprivan] 1,000,000 mcg in 100 ml IV NOW
Indication:: Light Sedation
Begin Infusion:: Now
Goal:: RASS 0 to -2
Maximum dose in mcg/kg/min:: 50
Initial dose based on RASS:: Yes
If RASS is:: +1 or pt hemodynamically unstable (SBP < 90mmHg), initiate at 10 mcg/kg/min
If RASS is:: +2, initiate at 20 mcg/kg/min
If RASS is:: greater than or equal to +3, initiate at 30 mcg/kg/min
Titration Instructions:: Titrate by 5-10 mcg/kg/min every 5 minutes until RASS 0 to -2 achieved.
Taper Instructions:: If RASS is at or below goal for 4 consecutive hours decrease infusion by
Taper Instructions:: 5-10 mcg/kg/min every 2 hours to off.
Over-sedation Instructions:: If CPOT 0-2 (at goal) AND RASS -3 to -5 (below goal) decrease sedative by
Over-sedation Instructions:: 50% first. If pain score remains at goal and RASS remains below goal in
Over-sedation Instructions:: 1 hour, decrease opioid infusion by 50%.
Notify provider:: immediately if patient exhibits signs/symptoms of propofol-related
Notify provider:: infusion syndrome.
Additional Instructions:: Patient MUST be mechanically ventilated and MUST receive analgesia.
Abnormal Lab Results
10/24/23 10/24/23 10/24/23
19:12 19:16 20:16
WBC 21.7 H 10^3/uL
(4.8-10.8)
RBC 3.80 L 10^6/uL
(4.20-5.40)
Hgb 8.7 L g/dL
(12.0-16.0)
Hct 30.9 L %
(37.0-47.0)
MCH 22.9 L pg
(27.0-31.0)
MCHC 28.2 L g/dL
(33.0-37.0)
RDW 17.2 H %
(11.5-14.5)
Abs Immat Gran (auto) 1.7 H 10^3/uL
(0-0.05)
Absolute Neuts (auto) 12.3 H 10^3/uL
(1.4-6.5)
Absolute Lymphs (auto) 5.3 H 10^3/uL
(1.2-3.4)
Absolute Monos (auto) 2.0 H 10^3/uL
(0.1-0.6)
Immature Gran % 7.8 H %
(0-0.5)
PT 20.3 H Sec
(11.4-14.6)
APTT 55.0 H Sec
(23.4-35.0)
pH 7.20 L
(7.35-7.45)
pCO2 44 H mmHg
(32-35)
pO2 330 H mmHg
(83-108)
HCO3 17.2 L mmol/L
(21-28)
ABG O2 Sat (Measured) 100.0 H %
(94-98)
Sodium 131 L mmol/L
(135-145)
Potassium 3.3 L mmol/L
(3.5-5.1)
Chloride 97 L mmol/L
(98-107)
Carbon Dioxide 16 L mmol/L
(22-30)
Glucose 181 H mg/dl
(70-99)
Lactic Acid 12.4 H* mmol/L
(0.7-2.0)
Calcium 8.1 L mg/dl
(8.4-10.2)
AST 97 H U/L
(14-36)
Alkaline Phosphatase 132 H U/L
(38-126)
Troponin I 0.107 H* ng/ml 0.335 H* D ng/ml
Total Protein 5.6 L g/dl
(6.3-8.2)
Albumin 2.8 L g/dl
(3.5-5.0)
Lipase 518 H U/L
(23-300)
POC Glucose 220 H mg/dl
(70-99)
10/24/23 19:16
10/24/23 19:16
Vital Signs
Initial and Last Documented VS:
Initial Vital Signs
Pulse Resp Pulse Ox
108 14 100
10/24/23 19:12 10/24/23 19:12 10/24/23 19:12
Last Documented Vital Signs
Pulse Resp BP Pulse Ox
119 21 136/73 100
10/24/23 20:30 10/24/23 20:30 10/24/23 20:30 10/24/23 20:30
Procedures
Central Line
Left Femoral:
Indication for procedure:: post cardiac arrest
Procedure completed by: Kwabena Olivarez MD
If no, reason: Emergency procedure
Anesthesia: 1% Lidocaine
Central line lumen: triple
Number of attempts: 1
Central line complications: none
Sterile dressing applied?: Yes
MDM/Problems Addressed
Differential Diagnosis Includes:
Differential diagnosis is wide, includes but not limited to: Acute PR, PE, hypoxic arrest, dysrhythmia, electrolyte anomaly
MDM/Problems Addressed:
63-year-old female presents via EMS status postcardiac arrest. Story as above, a total of 15 minutes of CPR. Downtime was no more than 25 minutes prior to CPR. Initial rhythm was asystole per EMS, persistently PEA/asystole throughout ACLS.
Arrives to us actually mildly hypertensive, tachycardic, with exam as above. Labs sent off including a CBC and a CMP, coags, lactate, blood cultures, troponins. Send urinalysis. Check an ABG. Stat portable chest x-ray reviewed by me shows
appropriate ET tube position, bilateral pulmonary edema versus pneumonia. Will send for a CT of the head as well as a CTA chest/abdomen/pelvis. Reviewed her EKG it shows sinus rhythm with a left bundle branch block; appears similar to prior EKG.
Initial set of labs reviewed: CBC shows leukocytosis to 21.7. CMP shows mild hypokalemia. Lactate 12.4. Her troponin is slightly elevated to 0.1. 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 I suspect her troponin elevation is likely related to CPR rather than acute PR. Cardiology did recommend starting on heparin empirically while trending troponins. Awaiting CT.
CT head negative for any acute pathology. CT chest shows bilateral interstitial edema, bilateral opacities concerning for aspiration versus pneumonia. She has rib fractures after CPR. She has signs of shock bowel and moderate ascites but no other
acute intra-abdominal pathology. At this point working diagnosis is hypoxic arrest related to pulmonary edema and suspect likely superimposed aspiration during CPR. Will cover with broad-spectrum antibiotics. Patient is starting to become
agitated is blinking and moving her eyes spontaneously. Started on propofol infusion. There was a question of some slight seizure-like activity will provide some Keppra. Central line placed for medication infusion. Will hold on IV Lasix despite
her edema given her hypokalemia�will replete potassium first. Admit to the ICU for continued management. I did discuss the case with the cad application support specialist and given she is having some spontaneous movement recommended against cooling. Discussed case
with hospitalist for admission.
Chronic conditions affecting care:
Cirrhosis
*Radiology
Radiology exam reviewed: preliminary read by ED provider and radiology read reviewed
*Pulse Oximetry
Patient hypoxic: yes
*EKG
Interpreted by ED Provider?: Yes
Comparison EKG: no changes
Heart Rate: 98
Rate: normal
Rhythm: sinus
[place]: left axis deviation
Interval: normal interval
QRS Pattern: left bundle branch block
Ischemia: non-specific ST changes
*Critical Care Note
Total Time (30-74mins, 75-104mins- exclusive of procedures): 41
comment:
Critical care statement: A total of 41 minutes of critical care time was provided for this patient. This includes management of unstable vital signs, evaluation of the patient at bedside, frequent reassessment, discussion with
consultants/hospitalist, and review of pertinent medical records. This time was separate from time utilized to perform any aforementioned documented procedures
Data Reviewed
Review of Other/Old Records Reveals: Labs and Records
Source: family and ambulance crew
Patient Management
Discussion with other providers: Hospitalist (Discussed with hospitalist) and Mill Laborer (Discussed with cad application support specialist, discussed with cbx operator)
Escalation/DeEscalation of care consider admission/obs:
Admission indicated
ED Attending Note
-
Portions of this chart may have been created with voice recognition software.� Occasional wrong word or��sound alike� substitutions may have occurred due to the inherent limitations of voice recognition software.
Discharge Plan
Departure
Patient Disposition: Admit
Date of Disposition: 10/24/23
Time of Disposition: 21:56
Admit to: ICU
Admit to doctor: Ritchie
Presentation/result/management discussed w/ accepting MD/DO: Hospitalist
Discharge Problem:
Cardiac arrest, Pulmonary edema, Pneumonia, Acute hypoxic respiratory failure
Prescriptions:
No Action
donepezil 10 mg Tablet
10 mg PO QPM
Patient Comments:
07/31/2023, prescribed HS but pt. takes QPM.
spironolactone 25 mg Tablet
25 mg PO BID
cholecalciferol (vitamin D3) [Vitamin D3] 25 mcg (1,000 unit) Capsule
75 mcg PO QPM
thiamine HCl (vitamin B1) 100 mg Tablet
300 mg PO DAILY Qty: 0
folic acid 1 mg Tablet
1 mg PO QPM
magnesium oxide 500 mg magnesium Tablet
500 mg PO DAILY Qty: 30 0RF
gabapentin 100 mg Capsule
100 mg PO HS Qty: 30 0RF
pantoprazole 40 mg Tablet,Delayed Release (Dr/Ec)
40 mg PO DAILY Qty: 30 0RF
Xifaxan 550 mg Tablet
550 mg PO BID Qty: 60 0RF
aspirin 81 mg tablet,delayed release (DR/EC)
81 mg PO DAILY
furosemide [Lasix] 20 mg tablet
20 mg PO DAILYPRN PRN (Reason: swelling)
Referrals:
NONE,* [Active] -
Interventions
Interventions:
*Risk Screen - Suicide Last Done: 10/24/23 20:22
*General Assessment Last Done: 10/24/23 19:57
*Neglect/Abuse Screening Last Done: 10/24/23 19:57
*ED COVID-19 Vaccine History Last Done: 10/24/23 19:57
ED- Cardiac Assessment Last Done: 10/24/23 20:00
ED- Pulmonary Assessment Last Done: 10/24/23 19:22
Discharge Date and Time
Print Language: CYPRIOT
[2023-10-24 19:30] LABS: % Basophils 0.8 % (0-2); % Immature Granulocytes 7.8 % (0-0.5); % Lymphocytes 24.4 % (20.5-51.1); % Monocytes 9.2 % (1.7-9.3); % Neutrophils 56.8 % (42.2-75.2); Absolute Basophils 0.2 10^3/uL (0-0.2); Absolute Eosinophils 0.2 10^3/uL (0-0.7); Absolute Immature Granulocytes 1.7 10^3/uL (0-0.05); Absolute Lymphocytes 5.3 10^3/uL (1.2-3.4); Absolute Neutrophils 12.3 10^3/uL (1.4-6.5); Hematocrit 30.9 % (37.0-47.0); Hemoglobin 8.7 g/dL (12.0-16.0); Mean Corp Hgb Conc. 28.2 g/dL (33.0-37.0); Mean Corpuscular Hgb 22.9 pg (27.0-31.0); Mean Corpuscular Volume 81.3 fL (81.0-99.0); Nucleated Red Blood Cells % 0.6 %; Platelet Count 360 10^3/uL (130-400); Red Cell Dist. Width 17.2 % (11.5-14.5); White Blood Cell Count 21.7 10^3/uL (4.8-10.8)
[2023-10-24 19:40] LABS: INR 1.73; PT 20.3 Sec (11.4-14.6)
[2023-10-24 19:46] LABS: HCG, Serum Qualitative Screen Negative
[2023-10-24 19:48] LABS: COVID-19 Antigen Negative (Negative)
[2023-10-24 19:51] LABS: Normal RBC Morphology No
[2023-10-24 19:52] LABS: ALT (SGPT) 26 U/L (0-35); AST (SGOT) 97 U/L (14-36); Albumin 2.8 g/dl (3.5-5.0); Alkaline Phosphatase 132 U/L (38-126); Blood Urea Nitrogen 10 mg/dl (7-17); Calcium 8.1 mg/dl (8.4-10.2); Carbon Dioxide 16 mmol/L (22-30); Chloride 97 mmol/L (98-107); Glucose 181 mg/dl (70-99); Lipase 518 U/L (23-300); Potassium 3.3 mmol/L (3.5-5.1); Sodium 131 mmol/L (135-145); Total Protein 5.6 g/dl (6.3-8.2); eGFR > 60.00
[2023-10-24 19:53] LABS: Hypochromasia 2+
[2023-10-24 19:54] LABS: Burr Cells 2+; Ovalocytes 1+
[2023-10-24 20:00] LABS: Troponin I 0.107 ng/ml
[2023-10-24 20:02] LABS: B.E. -10.2 mmol/L; HCO3 17.2 mmol/L (21-28); PCO2 44 mmHg (32-35); PO2 330 mmHg (83-108)
[2023-10-24 20:03] LABS: Lactic Acid 12.4 mmol/L (0.7-2.0)
[2023-10-24 20:50] LABS: Troponin I 0.335 ng/ml
[2023-10-24] MEDS: MAXIPIME 1000 MG IV (20:56)
[2023-10-24 21:09] LABS: Alcohol None Detected
[2023-10-24] MEDS: VANCOCIN 275 MG IV (21:13)
[2023-10-24] MEDS: HEPARIN 3800 UNITS IV (21:20)
[2023-10-24] MEDS: HEPARIN 25000 UNITS/250 ML IV (21:21)
[2023-10-24] MEDS: KEPPRA 1000 MG IV (22:12)
[2023-10-24] MEDS: KCL 100 IV (22:34)
--- NOTE | 2023-10-24 22:58 | HPS.HSE ---
Family Physician
-
Family Physician: Ramirez Flor
Chief Complaint
-
S/p cardiac arrest
History of Present Illness
Patient is 63 years old with history of liver cirrhosis secondary to alcohol abuse, recurrent ascites which required paracentesis weekly, hypertension, GERD who came by ambulance to the ER after out of hospital cardiac arrest.
Patient currently intubated and sedated and history taken from daughters at bedside.
As per daughter patient underwent paracentesis today and her grandson noted her face down on the couch and unresponsive.
As per daughter last alcohol drink was 6 weeks ago.
As per daughter no recent fever or chills, no history of coronary artery disease, no recent respiratory symptoms.
Patient had CPR done for almost 15 minutes, ROSC obtained and patient was hypotensive, was given IV epinephrine by ambulance.
In the ER patient was intubated, CT head came back shows no acute finding, CT chest done which shows bilateral interstitial edema, bilateral opacities concerning for aspiration versus pneumonia, also refracture from CPR.
Patient noted to have rectal movement and started on Keppra, ER discussed with interest, no cooling, also ER discussed with cardiology, no need for urgent cardiac cath since cause of cardiac arrest believed to be respiratory but secondary to
elevated troponin patient started heparin drip
Patient also started on IV antibiotic for possible aspiration.
Patient be admitted to the ICU.
Plan discussed with family at bedside.
Medical History
Past Medical History
Past Medical History: Reports HTN and Other
Additional Past Medical History:
Alcoholic liver cirrhosis, anxiety, depression
Past Surgical History: Reports None
Social History
Unable to obtain full social history at this time due to: Patient Intubation
Alcohol: Former
Personal:
Living: With Family
Family History
Family History: Not pertinent
Allergies / Home Medications
Allergies reflects when Allergies were last updated in [facility].
Home Medications with original date entered in [facility]
Allergy/Medication List:
Allergies
Allergy/AdvReac Type Severity Reaction Status Date / Time
Penicillins Allergy Hives Verified 10/24/23 20:39
Home Medications
cholecalciferol (vitamin D3) 25 mcg (1,000 unit) capsule (Vitamin D3) 75 mcg PO QPM Supplement 07/31/23
donepezil 10 mg tablet 10 mg PO QPM cognition 07/31/23
folic acid 1 mg tablet 1 mg PO QPM supplement 07/31/23
spironolactone 25 mg tablet 25 mg PO BID Fluid Retention/Swelling 07/31/23
thiamine HCl (vitamin B1) 100 mg tablet 300 mg PO DAILY supplement ##0 07/31/23
gabapentin 100 mg capsule 100 mg PO HS Neurological Condition #30 caps 08/21/23
magnesium oxide 500 mg PO DAILY Supplement #30 tabs 08/21/23
pantoprazole 40 mg tablet,delayed release 40 mg PO DAILY Gastrointestinal issue #30 tabs 08/21/23
rifaximin 550 mg tablet (Xifaxan) 550 mg PO BID Gastrointestinal issue #60 tabs 08/21/23
aspirin 81 mg tablet,delayed release 81 mg PO DAILY 10/24/23
furosemide 20 mg tablet (Lasix) 20 mg PO DAILYPRN PRN swelling 10/24/23
Review of Systems
-
Unable to obtain full review of systems at this time due to: Patient Intubation
History Source: Family
A 12 point ROS was completed and negative except as noted: Yes
Physical Exam
Vital Signs
Vital Signs
Temp Pulse Resp BP Pulse Ox
97.3 F 122 29 125/70 98
10/24/23 19:15 10/24/23 22:35 10/24/23 22:35 10/24/23 22:35 10/24/23 22:35
Physical Exam
General: Intubated
HEENT: NormoCephalic
Respiratory: Rales and Rhonchi
Cardiac: Tachycardia
GI: Distended
Musculoskeletal: No Edema, Left Upper Extremity or Edema, Right Upper Extremity
Skin: Rash and Lesions
Neuro: Sedated
Laboratory Results
-
10/24/23 19:16
10/24/23 19:16
Laboratory Results
PT 20.3 Sec (11.4-14.6) H 10/24/23 19:16
INR 1.73 10/24/23 19:16
APTT Cancelled 10/24/23 20:34
pH 7.20 (7.35-7.45) L 10/24/23 19:16
pCO2 44 mmHg (32-35) H 10/24/23 19:16
pO2 330 mmHg (83-108) H 10/24/23 19:16
HCO3 17.2 mmol/L (21-28) L 10/24/23 19:16
Lactic Acid 12.4 mmol/L (0.7-2.0) H* 10/24/23 19:16
Total Bilirubin 1.0 mg/dl (0.2-1.3) 10/24/23 19:16
AST 97 U/L (14-36) H 10/24/23 19:16
ALT 26 U/L (0-35) 10/24/23 19:16
Alkaline Phosphatase 132 U/L (38-126) H 10/24/23 19:16
Troponin I 0.335 ng/ml H* D 10/24/23 20:16
Lipase 518 U/L (23-300) H 10/24/23 19:16
Data Reviewed
-
Diagnostic Radiology: Report Reviewed by me
CT Scan: Report Reviewed by me
Ultrasound: Report Reviewed by me
MRI: Report Reviewed by me
Medical Tests (Nuc Med, Echo, EKG etc): Report Reviewed by me
Old Records: Reviewed
Impression/Plan
-
IMPRESSION:
Patient is 63 years old with history of alcoholic liver cirrhosis who came to the ER without of hospital cardiac arrest currently intubated and sedated will be admitted to the ICU started on IV antibiotic for possible aspiration pneumonia-given for
jerking movement-on heparin drip for elevated troponin.
PLAN:
[id number] PEA/asystole cardiac arrest.
Status post CPR for 15 minutes.
ROSC achieved.
ER reviewed with cardiology, no indication for cardiac cath
Patient intubated/sedated
Propofol
Management as per ICU team
Acute hypoxic respiratory failure secondary to cardiac arrest
Continue mechanical ventilation
Aspiration pneumonia
Started on IV antibiotic in form of cefepime and vancomycin
Elevated troponin/non-STEMI
Possible secondary to CPR but as per cardio recommendation started on heparin drip
Rule out seizure
CT head negative
Started on Keppra
Neurology consult
EEG
History of alcoholic liver cirrhosis
Paracentesis weekly as outpatient
Family communication:
Plan discussed with family at bedside.
CODE STATUS: Full code
DVT prophylaxis: Heparin drip
Diet: N.p.o.
[2023-10-24 23:14] LABS: Triglycerides 100 mg/dl (10-149)
[2023-10-25] VITALS (53 sets, daily range): BP systolic 87–117; BP diastolic 46–62; BMI 21.9
--- NOTE | 2023-10-25 | W.PN.UPDATE ---
Update Note
Progress Note Update
10/24/23
7520- Patient having myoclonic jerking bilaterally and disconjugate gaze. Keppra 1gm IV was given in ER. Updated neurologist Dr. Lincoln, concern for possible seizure activity secondary to anoxia with myoclonic jerking, patient does have history of
ETOH unclear when last drink was at this time. Dr. Lincoln's recommendations received: increased keppra to 1000mg IV BID and prn ativan IV 2mg for seizure activity, continue with propofol gtt.
[2023-10-25] MEDS: ATIVAN 2 MG IV ×3 (00:12→14:53)
--- NOTE | 2023-10-25 00:38 | PTCARENOTE ---
Addendum entered by Shea Almonte RN 10/25/23 00:51:
pt with coarse breathe sounds. core temp 101.3 ofirmev ordered.
Original Note:
pt received from er- pt ett to vent- #7 23cm at the lip. see vent settings as charted. pt on propofol 25mcg- propofol intermittent off- remains unresponsive and not following commands. eyes deviating up, pupils sluggish, myoclonic jerks noted- boris
review rn at bedside- ativan given as per order. boris sears spoke with dr. garnett. sinus tachy with bbb on monitor. heparin gtt at 950units/hr, kcl infusing without difficulty. left fem central line dressing c/d/i, flushes with good blood return.
bilateral ac peripheral ivs c/d/i, flush. palencia inserted without difficulty- yellow urine draining. og tube to low intermittent suction- draining brown. oral secretions blood tinged. all safety precautions in place.
[2023-10-25] MEDS: OFIRMEV 100 IV ×2 (00:58→14:57)
[2023-10-25 03:04] LABS: Hematocrit 25.3 % (37.0-47.0); Hemoglobin 7.7 g/dL (12.0-16.0); Mean Corp Hgb Conc. 30.4 g/dL (33.0-37.0); Mean Corpuscular Hgb 23.2 pg (27.0-31.0); Mean Corpuscular Volume 76.2 fL (81.0-99.0); Mean Platelet Volume 9.3 fL (7.4-10.4); Platelet Count 305 10^3/uL (130-400); Red Blood Cell Count 3.32 10^6/uL (4.20-5.40); Red Cell Dist. Width 17.2 % (11.5-14.5); White Blood Cell Count 24.9 10^3/uL (4.8-10.8)
[2023-10-25 03:08] LABS: Urine Albumin 1+ (Neg - Trace); Urine Bilirubin Negative (Negative); Urine Character Slightly Cloudy (Clear); Urine Color Yellow; Urine Glucose Trace (Negative); Urine Ketone Negative (Negative); Urine Leukocyte Negative (Negative); Urine Nitrite Negative (Negative); Urine Occult Blood 4+ (Negative); Urine Urobilinogen Negative (Neg - 1+)
[2023-10-25 03:24] LABS: Urine Granular Cast >15 /LPF (0); Urine Red Blood Cell >100 /HPF (0-2)
[2023-10-25 03:27] LABS: Urine Bacteria Few (Negative)
[2023-10-25 03:38] LABS: APTT > 200 Sec (23.4-35.0)
[2023-10-25 03:41] LABS: Lactic Acid 6.1 mmol/L (0.7-2.0)
[2023-10-25] MEDS: NSS (PRESERVATIVE FREE) 1 ML IV ×2 (03:56→14:52)
[2023-10-25] MEDS: STERILE WATER FOR INJECTION 10 ML IV ×3 (03:56→19:22)
[2023-10-25] MEDS: MAXIPIME 1000 MG IV ×3 (03:56→19:22)
[2023-10-25 04:10] LABS: AST (SGOT) 186 U/L (14-36); Albumin 2.4 g/dl (3.5-5.0); Alkaline Phosphatase 108 U/L (38-126); Blood Urea Nitrogen 16 mg/dl (7-17); Calcium 7.6 mg/dl (8.4-10.2); Carbon Dioxide 22 mmol/L (22-30); Chloride 99 mmol/L (98-107); Estimated Creatinine Clearance 48 ml/min; Glucose 135 mg/dl (70-99); HDL Cholesterol 61 mg/dl; LDL Cholesterol, Calculated 78 mg/dl; Magnesium 1.8 mg/dl (1.6-2.3); Phosphorus 4.7 mg/dl (2.5-4.5); Sodium 132 mmol/L (135-145); Total Bilirubin 1.6 mg/dl (0.2-1.3); Total Cholesterol 150 mg/dl (50-199); Total Protein 5.1 g/dl (6.3-8.2); Triglyceride 58 mg/dl (10-149); Very Low Density Lipoprotein 11 mg/dl (0-30); eGFR > 60.00
--- NOTE | 2023-10-25 04:19 | PTCARENOTE ---
pt with myoclonic jerking- boris sears aware- ativan given per order. boris sears aware of ptt result. heparin on hold per protocol. turned and repositioned, oral care provided. assessment unchanged. pt remains unresponsive.
[2023-10-25 04:26] LABS: Troponin I 0.683 ng/ml
[2023-10-25 04:32] LABS: Absolute Neutrophils -Man Diff 24.1 10^3/uL (1.4-6.5); Band Neutrophils 12 % (0-3); Lymphocytes 1 % (20-51); Monocytes 2 % (2-9); Normal RBC Morphology No; Platelets Checked Yes; Segmented Neutrophils 85 % (42-75)
[2023-10-25 04:33] LABS: Acanthocytes Occasional; Anisocytosis 1+; Ovalocytes 1+; Total Cells Counted 100
[2023-10-25 04:36] LABS: Polychromasia Occasional; Toxic Granulation Occassional
[2023-10-25] MEDS: DIPRIVAN 100 IV (04:36)
[2023-10-25 04:41] LABS: Microcytosis 1+; Nucleated Red Blood Cells 1 (-)
[2023-10-25 05:05] LABS: B.E. -3.4 mmol/L; HCO3 19.4 mmol/L (21-28); O2 Saturation % 99.4 % (94-98); PCO2 26 mmHg (32-35); PO2 151 mmHg (83-108); pH 7.48 (7.35-7.45)
[2023-10-25 05:08] LABS: O2 Therapy VENT
[2023-10-25 06:26] LABS: ALT (SGPT) 49 U/L (0-35)
--- NOTE | 2023-10-25 07:19 | W.PN.HOSP.TC ---
Today's Communication/Plan
-
mechanical ventilation as per ICU
keppra propofol EEG as per Neuro
cont abx
hep gtt
supportive care
Assessment / Plan
Assessment / Plan
Physical Exam
General: Intubated
HEENT: NormoCephalic Vertical disconjugated Gaze fixated Upward pinpoint pupils
Respiratory: Clear to auscultation b/l
Cardiac: Tachycardia
GI: Distended decreased bowel sounds
Musculoskeletal: +1 pitting edema lower ext's b/l
Neuro: Sedated
IMPRESSION:
63F history of alcoholic liver cirrhosis BIBEMS out of hospital cardiac arrest intubated/sedated admitted ICU started on IV antibiotic for possible aspiration pneumonia, antiseizure medications due to jerking movements, started on heparin drip for
elevated troponin concern ACS.
PLAN:
#[id number] PEA/asystole cardiac arrest.
Indeterminate downtime
Status post CPR for 15 minutes, ROSC achieved.
Patient intubated/sedated
Management as per ICU team
#Acute hypoxic respiratory failure secondary to cardiac arrest
Continue mechanical ventilation
Aspiration pneumonia
cont empiric abx cefepime and vancomycin
#Elevated troponin/non-STEMI
Possible secondary to CPR
ECHO appreciated preserved EF 65-70%
Cardio eval appreciated cont hep gtt trend troponin to peak, supportive care
Seizure
CT head negative
Neuro consult appreciated
-suspected Anoxic Brain Injury
-cont Keppra, Propofol, EEG
CT concerning for Bowel Ischemia/Shock Bowel
Lactic acid trending down from high 12.4
likely not a good candidate for surgical intervention
History of alcoholic liver cirrhosis
Paracentesis weekly as outpatient
Appreciate Target Worker discussion with family, code status subsequently updated to DNR per discussion.
CODE STATUS: DNR
DVT prophylaxis: Heparin drip
Diet: N.p.o.
Overall Prognosis poor
Total Critical Care Time__50___ minutes. I was immediately available to the patient and staff. I personally examined, reviewed labs, diagnostic images/reports, interpretations, treatment plans, discussed patient care with other providers, entered
orders as appropriate and documented the medical record.
Anticipated Discharge: > 48 hours
Subjective/Interval History
-
Date of Service: October 25, 2023
Intubated Sedated. Vertical Conjugate Gaze fixated upward. On EEG
Objective Data
-
Labs:
Laboratory Results
10/24/23 10/24/23 10/25/23
19:16 20:34 00:05
WBC 21.7 H Cancelled
Hgb 8.7 L Cancelled
Hct 30.9 L Cancelled
Plt Count 360 Cancelled
PT 20.3 H
INR 1.73
APTT 55.0 H Cancelled
HCO3 17.2 L
Sodium 131 L Cancelled
Potassium 3.3 L Cancelled
Chloride 97 L Cancelled
Carbon Dioxide 16 L Cancelled
BUN 10 Cancelled
Creatinine 0.8 Cancelled
Glucose 181 H Cancelled
Calcium 8.1 L Cancelled
Total Bilirubin 1.0 Cancelled
AST 97 H Cancelled
ALT 26 Cancelled
Alkaline Phosphatase 132 H Cancelled
10/25/23 10/25/23 10/25/23
02:35 04:59 05:30
WBC 24.9 H
Hgb 7.7 L
Hct 25.3 L
Plt Count 305
PT Pending
INR Pending
APTT > 200 H* Pending
HCO3 19.4 L
Sodium 132 L
Potassium 4.0
Chloride 99
Carbon Dioxide 22
BUN 16
Creatinine 1.0
Glucose 135 H
Calcium 7.6 L
Total Bilirubin 1.6 H
AST 186 H
ALT 49 H
Alkaline Phosphatase 108
10/25/23
11:40
WBC
Hgb
Hct
Plt Count
PT
INR
APTT Pending
HCO3
Sodium
Potassium
Chloride
Carbon Dioxide
BUN
Creatinine
Glucose
Calcium
Total Bilirubin
AST
ALT
Alkaline Phosphatase
Vital Signs:
Vital Signs
Temp Pulse Resp BP Pulse Ox
98.6 F 96 26 96/51 98
10/25/23 03:18 10/25/23 05:45 10/25/23 05:45 10/25/23 05:30 10/25/23 05:45
I&O
10/24/23 10/25/23 10/26/23
06:59 06:59 06:59
Intake Total 126.6 / 126.6
Output Total 945 / 945
Balance -818.4 / -818.4
[2023-10-25] MEDS: KEPPRA 1000 MG IV ×2 (07:40→19:22)
[2023-10-25] MEDS: NSS (PRESERVATIVE FREE) 10 ML IV (07:41)
[2023-10-25] MEDS: PROTONIX IV 40 MG IV (07:41)
--- NOTE | 2023-10-25 07:44 | CON.CAR ---
Addendum entered and electronically signed by Sylvester Bui MD 10/25/23 11:27:
Intubated, on ventilator, small minimally reactive pupils, 2 daughters at bedside, no spontaneous movement appears very comfortable
PMH: Cirrhosis with ascites requiring frequent paracenteses, cellulitis August 2023, history of alcohol abuse, cognitive impairment/dementia, GERD, cholelithiasis, hypertension, anxiety, depression
PSH: Reportedly negative
Allergies: Penicillin
Outpatient medications: Aspirin 81 mg a day, vitamin D3, donepezil 10 mg a day, folate, furosemide 20 mg daily as needed, Neurontin 100 mg at bedtime, magnesium 500 mg a day, pantoprazole 40 mg daily, spironolactone 25 mg twice daily, thiamine,
Xifaxan
Current meds: Reviewed, IV heparin, cefepime, pantoprazole, vancomycin, propofol, levetiracetam 1000 mg every 12, patient was on norepinephrine
ROS: Not obtainable
92/, pulse 91, temp 38.2, weight is 57.8 kg, similar to discharge weight August,, intake and output -0.8
No distress, intubated, EEG in progress, head neck exam unremarkable, lungs relatively clear, regular rate and rhythm without obvious murmurs, JVD okay, abdomen relatively but mildly distended extremities without edema, neuro small minimally
reactive pupils does not withdraw to pain,
Hemoglobin 7.7, was 9.4 at discharge in August 8.7 yesterday, platelets are 305,, left shift, ABG 7.48, pCO2 26, pO2 151, bicarb 19.4, sodium 132, BUN and creatinine 16 and 1, potassium 4, lactic acid 12.4, 6.1, currently pending, peak troponin
0.686, proBNP pending
CT chest abdomen pelvis: Mild coronary calcification, ground glass airspace disease, suspected pulmonary edema, moderate to large ascites, gallstones, severe aortoiliac calcification
Echo August 2023: EF 60%, normal LV, normal RV, dilated left atrium, mild MR, aortic sclerosis, trace TR normal pulmonary artery pressure
ECG July 2024 sinus rhythm with left bundle and left axis
ECG October 23: Sinus rhythm, first-degree AV block, widened QRS with left bundle morphology
Today's EKG: Pending, suspect has returned to prior
Plan:
She presents with what I suspect was probably a respiratory arrest and presumed severe anoxic brain injury. By echo a few months ago her LV function was normal, so the likelihood of a primary arrhythmic event as the precipitant seems unlikely.
We will recheck an echocardiogram. Await repeat EKG
From cardiac standpoint, would simply continue supportive care.
Await assessment and recommendations from neurology over time.
Prognosis seems poor. Daughters seem realistic. Daughter mentions that patient's in the ICU about 2 months ago.
We will continue to follow for now.
Original Note:
Consultation
Consultation Request
Date/Time Consultation Requested: 10/24/2023
Date/Time Consultation Performed: 10/25/2023
Requesting Provider: Dr. Aragon
Performing Provider: Nancy Peters PA-C for Dr. Sylvester Bui
Reason for Consultation: Cardiac arrest
Medical History
-
History of Present Illness:
Patient is a 63-year-old female with past medical history of alcohol abuse, liver cirrhosis with recurrent ascites, hypoalbuminemia, chronic anemia, GERD, anxiety/depression who presented 10/24/2023 with out of hospital cardiac arrest. History is
obtained by review coordinating care providers to obtain from family. Patient had been at [facility] earlier that day for her weekly paracentesis and was feeling well. Her grandson was at her house doing some work and had seen her
normal 25 minutes prior to finding her face down unresponsive. He was unable to find a pulse so he called 911 and started CPR. On EMS arrival she was noted to be in asystole. She was given 3 rounds of IV epinephrine with ROSC after an additional
10 minutes of CPR. On arrival to emergency department patient was intubated and unresponsive. The emergency supervisor wall mirror department CT showed no acute abnormality. CT of chest showed bilateral interstitial edema, bilateral opacities concerning for
aspiration versus pneumonia. Initial EKG showed wide complex rhythm with known LBBB. Initial troponin 0.107 but trending upward. After discussion with on-call reducer there was no plan for cardiac catheterization as arrest was felt to be
more respiratory in nature. Patient was placed on IV heparin drip and started on IV antibiotics for possible aspiration pneumonia. Patient developed myoclonic jerking bilaterally with disconjugate gaze and was started on Keppra. At time of this
evaluation patient remains intubated and sedated.
PMH:
Chronic left bundle branch block
ETOH abuse
Alcoholic hepatitis
Ascites with weekly paracentesis at [facility]
GERD
Anxiety/depression
Psoriasis
Lower extremity cellulitis
Chronic anemia
Past Medical History
Past Medical History: Other (see HPI)
Past Surgical History: and Gynecological (Hysterectomy)
Social History
Tobacco: Non-Smoker
Alcohol: Chronic Alcoholic (Last drink in early September 2023)
Drug: None
Personal:
Living: Alone
Family History
Family History: Reviewed & Not Pertinent and Unable to Obtain (intubated)
Allergies / Home Medications
Allergy/AdvReac Type Severity Reaction Status Date / Time
Penicillins Allergy Hives Verified 10/24/23 20:39
�Medication �Instructions �Recorded �Confirmed �Type
cholecalciferol (vitamin D3) 25 75 mcg PO QPM Supplement 07/31/23 10/24/23 History
mcg (1,000 unit) capsule (Vitamin
D3)
donepezil 10 mg tablet 10 mg PO QPM cognition 07/31/23 10/24/23 History
folic acid 1 mg tablet 1 mg PO QPM supplement 07/31/23 10/24/23 History
spironolactone 25 mg tablet 25 mg PO BID Fluid 07/31/23 10/24/23 History
Retention/Swelling
thiamine HCl (vitamin B1) 100 mg 300 mg PO DAILY supplement ##0 07/31/23 10/24/23 History
tablet
gabapentin 100 mg capsule 100 mg PO HS Neurological 08/21/23 10/24/23 Rx
Condition #30 caps
magnesium oxide 500 mg PO DAILY Supplement #30 tabs 08/21/23 10/24/23 Rx
pantoprazole 40 mg tablet,delayed 40 mg PO DAILY Gastrointestinal 08/21/23 10/24/23 Rx
release issue #30 tabs
rifaximin 550 mg tablet (Xifaxan) 550 mg PO BID Gastrointestinal 08/21/23 10/24/23 Rx
issue #60 tabs
aspirin 81 mg tablet,delayed 81 mg PO DAILY 10/24/23 10/24/23 History
release
furosemide 20 mg tablet (Lasix) 20 mg PO DAILYPRN PRN swelling 10/24/23 10/24/23 History
Review of Systems
-
Unable to obtain full review of systems at this time due to: Patient Intubation
History Source: Coordinating Provider
Physical Exam
Vital Signs
Temp Pulse Resp BP Pulse Ox
100.7 F H 96 26 96/51 98
10/25/23 07:27 10/25/23 05:45 10/25/23 05:45 10/25/23 05:30 10/25/23 07:38
GEN: Intubated and sedated
HEENT: supple, anicteric, mmm
LUNGS: CTA anteriorly, intubated
CV: Reg, S1/S2, no murmur, rub or gallop
ABD: soft, BS+, NT/ND
EXT: trace edema bilaterally
NEURO:Sedated, upward gaze; EEG in place
SKIN: No rash, warm, dry, pink
Lab Results
10/25/23 02:35
10/25/23 02:35
Troponin I 0.683 ng/ml H* D 10/25/23 03:50
Troponin I Cancelled 10/25/23 03:50
Impression / Plan
-
PCP: Ramirez Flor
Topper Packer: None on record, initial consult Sylvester Bui
Impression:
Presented 10/24/2023 with out of hospital asystolic arrest
Acute hypoxic respiratory failure with intubation
Involuntary movements
Pulmonary edema
Possible aspiration pneumonia
Abnormal troponin
Hyponatremia
Hypokalemia
Chronic left bundle branch block
ETOH abuse
Alcoholic hepatitis
Ascites with weekly paracentesis at [facility]
GERD
Anxiety/depression
Psoriasis
Lower extremity cellulitis
Chronic anemia
Echo 08/21/2023: EF 60%, moderately dilated left atrium, mild MR. PAP 25 to 30 mmHg
Plan:
-Presented 10/24/2023 as out of hospital cardiac arrest noted to be in asystole with ACLS protocol and approximately 15 minutes of CPR. She was noted to be normal approximately 25 minutes prior to being found before ROSC.
-Patient currently intubated and sedated.
-Acute hypoxic respiratory failure with concern aspiration pneumonia. Continue IV antibiotics
-Check proBNP given suggestion of pulm edema on CT
-Abnormal troponin, initial 0.107, now trending upward, 0.683. Continue to monitor and trend to peak. Continue IV heparin drip.
-ECG shows wide complex rhythm. Patient with known left bundle branch block. EKG looks similar to baseline. Continue to monitor on telemetry
-Echocardiogram in August 2023 showed preserved ejection fraction. Repeat echocardiogram
-Pending clinical course and recovery consider eventual ischemic evaluation
-Patient noted to have mono-clonic jerking with disconjugate gaze. Started on heparin. Neuro following. EEG pending
-Hemodynamically stable, not on pressors
HPI 10/25/2023:
Patient is a 63-year-old female with past medical history of alcohol abuse, liver cirrhosis with recurrent ascites, hypoalbuminemia, chronic anemia, GERD, anxiety/depression who presented 10/24/2023 with out of hospital cardiac arrest. History is
obtained by review coordinating care providers to obtain from family. Patient had been at [facility] earlier that day for her weekly paracentesis and was feeling well. Her grandson was at her house doing some work and had seen her
normal 25 minutes prior to finding her face down unresponsive. He was unable to find a pulse so he called 911 and started CPR. On EMS arrival she was noted to be in asystole. She was given 3 rounds of IV epinephrine with ROSC after an additional
10 minutes of CPR. On arrival to emergency department patient was intubated and unresponsive. The emergency supervisor wall mirror department CT showed no acute abnormality. CT of chest showed bilateral interstitial edema, bilateral opacities concerning for
aspiration versus pneumonia. Initial EKG showed wide complex rhythm with known LBBB. Initial troponin 0.107 but trending upward. After discussion with on-call reducer there was no plan for cardiac catheterization as arrest was felt to be
more respiratory in nature. Patient was placed on IV heparin drip and started on IV antibiotics for possible aspiration pneumonia. Patient developed myoclonic jerking bilaterally with disconjugate gaze and was started on Keppra. At time of this
evaluation patient remains intubated and sedated.
Data Reviewed
-
EKG: Report Reviewed by me, Discussed with Physician, Discussed with Nurse and Discussed with Patient
Radiology: Report Reviewed by me, Discussed with Physician, Discussed with Nurse and Discussed with Patient
CT Scan: Report Reviewed by me, Discussed with Physician, Discussed with Nurse and Discussed with Patient
Labs: Labs Reviewed by me, Discussed with Physician, Discussed with Nurse and Discussed with Patient
Old Records: Reviewed
--- NOTE | 2023-10-25 07:55 | CON.NEURO4 ---
Consultation - Neurology 4
-
CONSULTING PHYSICIAN: Steve Lincoln
REFERRING PHYSICIAN: Hospitalist/ICU
DICTATED BY: Steve Lincoln
DATE/TIME OF REQUEST: 10/25/23
DATE/TIME OF CONSULTATION: 10/25/23
Reason for Consultation: Cardiac arrest, myoclonus
History of Present Illness:
Patient is a 63-year-old woman with history of cirrhosis, hypertension presented to hospital after cardiac arrest. She had undergone paracentesis yesterday and her family had found her facedown on the couch at home unresponsive, he had seen around
25 minutes previously and appeared normal and in no distress with any health issues. Grandson calling 911 and started CPR with instructions and EMS later arrived finding her in asystole, ACLS was started and she was given epinephrine and eventually
ROSC was obtained after around 15 minutes. She was intubated in the field.
She is admitted to the ICU, did not undergo any type of targeted temperature management. Some myoclonic type movements were seen along with disconjugate gaze so patient was started on levetiracetam as well as given IV lorazepam, continued on
propofol infusion. CT chest had findings of bilateral pulmonary edema and opacities suspicious for superimposed aspiratio/pneumonia. CT head had no acute intracranial abnromality.
Past Medical History: Decompensated cirrhosis due to alcohol use, hypertension, GERD, psoriasis, anxiety/depression
Surgical History: Paracentesis
Family History: Non-contributory
Social History: Lives at home, single, no tobacco, alcohol abuse
Allergies: Penicillins
Review of Symptoms:
Patient denies any fever, headache, chest pain, shortness of breath, GI or symptoms.
Physical Exam:
Middle-age woman appears older than her stated age, thin muscle mass, intubated with OG tube and ET tube in place, eyes are clear and anicteric, neck with no masses, heart rate regular breathing breath sounds present bilaterally, abdomen soft mild
distention no guarding or rigidity, no lower extremity edema or rash
Neurologic Examination:
Medical status shows coma, no eye opening, [id number] (withdrawal at best vs triple flexion)
Cranial nerve examination shows pupils that are miotic to 3 mm and do show reactivity to light bilaterally, gaze is disconjugate with eyes pointing in different directions, vestibular ocular reflex is absent, corneal reflexes absent bilaterally,
cough reflex appears to be intact
Motor examination shows no spontaneous movements no movement to sternal rub or upper extremity pain bilaterally, withdrawal versus triple flexion in the lower extremities bilaterally
Babinski negative, reflexes are diminished throughout
Unable to assess coordination or gait
Neuro Imaging: CT head non contrast normal mora white matter differentiation, no edema seen, no infarct or hemorrhage seen
Impressions
1. Cardiac arrest, currently showing signs of coma, overnight had had some myoclonic type movements which I am not showing on my current examination. Likely has sustained in the anoxic brain injury.
2. History of alcohol induced cirrhosis, decompensated requiring paracentesis
3. Hypertension
4. History of alcohol abuse
Recommendations:
1. Continuous EEG monitoring
2. Continue Levetiracetam 1000 mg q12hr
3. Continue propofol, currently at 10 mcg/kg/min is acceptable. May adjust based on cEEG
4. Neurologic checks
5. Ideally would obtain brain MRI for evaluation of anoxic brain injury, prioritize continuos EEG for today
6. Supportive care
ICU time = 45 minutes
Discussed patient care with: Nursing, ICU
--- NOTE | 2023-10-25 07:56 | PTCARENOTE ---
Received patient from [facility]. Patient is unresponsive, intubated, unrestrained. On ventilator AC 12/350/40%5 with oxygen saturation os 98%. Patient has number 7 ETT positioned on right side of mouth. Patient is sinus rhythm on monitor, +1
non pitting edema noted in lower extremities. OGT is on low intermittent suction, draining yellow, brownish fluid. Knight is draining yellow urine. Skin as documented in focused assessment. Heparin gtt and low dose of propofol infusing into left
femoral line. Will review orders.
[2023-10-25 10:52] LABS: APTT 139.7 Sec (23.4-35.0)
[2023-10-25 10:59] LABS: Lactic Acid 3.3 mmol/L (0.7-2.0)
[2023-10-25 11:10] LABS: Troponin I 0.365 ng/ml
[2023-10-25 11:26] LABS: NT-proBNP 2660 pg/ml
--- NOTE | 2023-10-25 11:43 | CON.INTV ---
Consultation
Consultation Request
Date/Time Consultation Requested: 10/25/2023
Date/Time Consultation Performed: 10/25/2023
Requesting Provider: Dr. Farmer
Performing Provider: Dr. Clyde Adrian
Reason for Consultation: Out of hospital cardiac arrest, acute respiratory failure.
Medical History
-
History of Present Illness:
63-year-old woman with history of liver cirrhosis secondary to alcohol abuse, recurrent ascites requiring weekly paracenteses, last paracentesis day prior to admission, hypertension, GERD last alcoholic drink about 6 weeks ago. Came to the
emergency room due to out of hospital cardiac arrest.
Patient lives with her grandson. Apparently she was found down in the couch. Grandson started CPR. EMS was called. Unknown time down at home. About 15 to 20 minutes of CPR with ROSC. Intubated, on mechanical ventilation.
There was no history of coughing, chills or fevers preceding this event.
Emergency room CAT scan of the brain negative.
CT abdomen pelvis and chest noted. Bilateral pulmonary infiltrates suggestive of possibly aspiration and pulmonary edema.
In the emergency room patient had myoclonic jerks. Started on antiseizure medication.
Subsequently transferred to the critical care unit.
Today not requiring vasopressors.
No meaningful neurological recovery. Off sedation.
Mechanical ventilation with FiO2 40%. Adequate pulmonary mechanics.
2 daughters at the bedside. Updated by Dr. Adrian.
Past Medical History
Past Medical History: Other (See assessment and plan section)
Social History
Tobacco: Non-smoker
Alcohol: Daily (Last drink 6 weeks ago)
Family History
Family History: Unable to Obtain
Allergies / Home Medications
Allergies
Allergy/AdvReac Type Severity Reaction Status Date / Time
Penicillins Allergy Hives Verified 10/24/23 20:39
Home Medications
�Medication �Instructions �Recorded �Confirmed �Last Taken �Type
cholecalciferol (vitamin D3) 25 75 mcg PO QPM Supplement 07/31/23 10/24/23 Unknown History
mcg (1,000 unit) capsule (Vitamin
D3)
donepezil 10 mg tablet 10 mg PO QPM cognition 07/31/23 10/24/23 Unknown History
folic acid 1 mg tablet 1 mg PO QPM supplement 07/31/23 10/24/23 Unknown History
spironolactone 25 mg tablet 25 mg PO BID Fluid 07/31/23 10/24/23 Unknown History
Retention/Swelling
thiamine HCl (vitamin B1) 100 mg 300 mg PO DAILY supplement ##0 07/31/23 10/24/23 Unknown History
tablet
gabapentin 100 mg capsule 100 mg PO HS Neurological 08/21/23 10/24/23 Unknown Rx
Condition #30 caps
magnesium oxide 500 mg PO DAILY Supplement #30 tabs 08/21/23 10/24/23 Unknown Rx
pantoprazole 40 mg tablet,delayed 40 mg PO DAILY Gastrointestinal 08/21/23 10/24/23 Unknown Rx
release issue #30 tabs
rifaximin 550 mg tablet (Xifaxan) 550 mg PO BID Gastrointestinal 08/21/23 10/24/23 Unknown Rx
issue #60 tabs
aspirin 81 mg tablet,delayed 81 mg PO DAILY Blood Clot 10/24/23 10/24/23 Unknown History
release Prevention/Tx
furosemide 20 mg tablet (Lasix) 20 mg PO DAILYPRN PRN swelling 10/24/23 10/24/23 Unknown History
Review of Systems
-
Unable to Obtain full review of systems at this time due to: Patient Intubation
Vitals / Labs / Diagnostic Testing
Vital Signs
Temp Pulse Resp BP Pulse Ox
100.1 F 94 19 92/53 99
10/25/23 11:01 10/25/23 11:30 10/25/23 11:30 10/25/23 11:30 10/25/23 11:30
Lab Data
10/25/23 02:35
10/25/23 02:35
Laboratory Results
10/24/23 10/24/2324
19:16 20:34 02:35
PT 20.3 H
INR 1.73
APTT 55.0 H Cancelled > 200 H*
pH 7.20 L
pCO2 44 H
pO2 330 H
HCO3 17.2 L
O2 Delivery Level
10/25/23 10/25/23
04:59 10:09
PT
INR
APTT 139.7 H
pH 7.48 H
pCO2 26 L
pO2 151 H
HCO3 19.4 L
O2 Delivery Level Vent
Microbiology
10/24/23 19:16 Blood/Venous Blood Culture - Preliminary
Positive culture in progress
10/24/23 19:16 Blood/Venous Gram Stain - Preliminary
10/25/23 02:35 Nose Nasal Screen MRSA (PCR) - Final
MRSA not detected - performed by PCR methodology.
Diagnostic Testing:
Physical Exam
-
HEENT: Normocephalic and Other (ET tube in place)
Cardiovascular: S1/S2 and Regular Rhythm
Respiratory: Rales and Non-Labored Respirations
GI: Soft and Distended (Ascites)
Neurology: Other (Comatose on mechanical ventilation. Upward gaze. No cough or gag Reflex. Has respiratory effort. No response to painful stimuli)
Skin: Warm
General: Comfortable
Assessment
-
63-year-old woman with multiple comorbidities, mainly cirrhosis of the liver. Weekly paracentesis. Found down at home. Found to be on PEA/asystole cardiorespiratory arrest. Unknown time down. 15 minutes CPR with ROSC.
Intubated, mechanical ventilation and transferred to the critical care unit 10/24/2023.
-
Out of hospital cardiac arrest: PEA/asystole-50 minutes. Unknown time down.
Acute hypoxemic respiratory failure due to aspiration pneumonitis. Requiring intubation and mechanical ventilation.
Aspiration pneumonitis: Abnormal CT chest with bilateral infiltrates and groundglass opacities.
Cannot rule out congestive heart failure component.
-
Highly suspicious for severe anoxic brain injury-remains comatose
Lactic acidosis
Mild troponin leak likely non-IL
Abnormal LFTs likely ischemic injury
Conditions present prior admission:
Alcoholic cirrhosis-weekly paracentesis.
Hypertension
GERD
Anxiety
Assessment and plan:
Critically ill, intubated on mechanical ventilation. Remains comatose.
Suspected severe anoxic brain injury.
-
Mechanical ventilation settings reviewed.
Pulmonary mechanics are adequate.
Peak pressure 22.
FiO2 40%.
Continue without change
ABG 10/25/2023: 7.48/151
-
No plans for spontaneous breathing trial at this point.
Patient has no cough effort.
-
Suspected anoxic brain injury:
CT head without acute abnormalities
Remains comatose despite discontinuation of sedation.
Continue EEG monitoring
Antiepileptic drugs
Case discussed with neurology-unfortunately poor prognostic indicators for recovery.
-
Continue antibiotics for possible aspiration event
May need to adjust as patient comes from home
Follow cultures
-
Increased troponins likely due to CPR.
Increased proBNP: FiO2 40% per pulmonary mechanics
Acceptable. Hold any diuresis
Hemodynamically, not requiring vasopressors per
Trend
Doubt acute coronary syndrome
Echocardiogram pending
Cardiology was consulted
Currently on heparin drip. Hopefully can discontinue.
-
Abdominal CT is noted with possible diffuse ischemic injury.
Lactate level trending lower. Doubt this is full thickness ischemia
Keep NG tube
Keep n.p.o.
Unlikely she will be a candidate for any interventions at this point. Continue supportive care
Lipase is elevated possibly due to ischemic event as well.
Discussed with primary team
-
Glycemic control Target blood sugars 140-180.
Insulin as needed
-
DVT prophylax-on heparin drip.
-
N.p.o.
NG tube in place
Head of elevation
-
Dr. Adrian updated 2 daughters extensively at the bedside 10/25/2023: Poor prognostic indicators. High likelihood of severe anoxic brain injury.
Patient would not want to be on mechanical ventilation per prior conversations. There is no advanced directive.
Will institute DNR.
Patient will continue to follow daily situation. In the next 24 to 48 hours if there is no meaningful recovery they would likely make a decision to withdraw care.
Prognosis guarded
-
Critical care statement: A total of 50 minutes of critical care time was provided for this patient today. This includes management of unstable vital signs, evaluation of the patient at bedside, reviewing the patient's pertinent medical records
including ventilator settings, arterial blood gases, radiographs, microbiology, laboratory evaluations and discussion with primary team, critical care nursing, and respiratory therapy.
--- NOTE | 2023-10-25 12:49 | PTCARENOTE ---
Patient has been off sedation, has marginal urinary output. Dr. Adrian addressed goals of care with patient's family. Patient made DNR. Patient remains unresponsive. EEG was discontinued, will continue with supportive care.
--- NOTE | 2023-10-25 13:19 | CM ---
CM following re: discharge planning.
Reviewed pt's chart, met with pt. Pt's family at bedside.
Pt is a 63 year old female admitted with primary dx of Out of hospital cardiac arrest with history of liver cirrhosis secondary to alcohol abuse. Per Rounds meeting, pt is critically ill, intubated on mechanical ventilation. Remains comatose.
Suspected severe anoxic brain injury. Continue supportive care.
Pt lives alone 2SH, 2 steps to enter, has supportive family, 2 daughters live locally. Pt has a walker at home, known to [facility] and was at [facility] in 2021.
PCP: Ramirez Flor
Pharmacy: [facility]
D/C plan: uncertain at this time and will depend on pt's progress.
CM will follow with discharge plan updates as hospitalization progresses
[2023-10-25 18:56] LABS: APTT 54.1 Sec (23.4-35.0)
--- NOTE | 2023-10-25 19:12 | PTCARENOTE ---
pt received from previous rn- ett to vent- see settings as charted- remains unresponsive, eyes deviated up, pupils sluggish. pt with weak gag, does not respond to any stimuli. palencia draining cyu, oliguric. heparin gtt continues. pt turned and
repositioned. pm care provided. oral and palencia care provided. nsr with bbb on monitor. ogt to low int. suction with minimal brown drainage. all safety precautions in place.
--- NOTE | 2023-10-25 23:54 | PTCARENOTE ---
assessment unchanged, pt remains unresponsive. frequent oral care and suctioning for thick blood tinged secretions.
[2023-10-26] VITALS (32 sets, daily range): BP systolic 82–160; BP diastolic 41–88; BMI 21.6
[2023-10-26 01:27] LABS: APTT 102.6 Sec (23.4-35.0)
[2023-10-26] MEDS: MAXIPIME 1000 MG IV ×2 (04:08→11:03)
[2023-10-26] MEDS: STERILE WATER FOR INJECTION 10 ML IV ×2 (04:09→11:04)
[2023-10-26 04:12] LABS: % Basophils 0.1 % (0-2); % Immature Granulocytes 0.9 % (0-0.5); % Lymphocytes 7.3 % (20.5-51.1); % Neutrophils 83.7 % (42.2-75.2); Absolute Immature Granulocytes 0.2 10^3/uL (0-0.05); Absolute Lymphocytes 1.7 10^3/uL (1.2-3.4); Absolute Monocytes 1.9 10^3/uL (0.1-0.6); Absolute Neutrophils 19.3 10^3/uL (1.4-6.5); Mean Corp Hgb Conc. 31.8 g/dL (33.0-37.0); Mean Corpuscular Hgb 23.3 pg (27.0-31.0); Mean Corpuscular Volume 73.1 fL (81.0-99.0); Mean Platelet Volume 9.5 fL (7.4-10.4); Nucleated Red Blood Cells % 0 %; Platelet Count 335 10^3/uL (130-400); Red Blood Cell Count 3.01 10^6/uL (4.20-5.40); Red Cell Dist. Width 17.4 % (11.5-14.5); White Blood Cell Count 23.1 10^3/uL (4.8-10.8)
[2023-10-26 05:00] LABS: ALT (SGPT) 44 U/L (0-35); AST (SGOT) 156 U/L (14-36); Albumin 2.3 g/dl (3.5-5.0); Alkaline Phosphatase 97 U/L (38-126); Blood Urea Nitrogen 33 mg/dl (7-17); Calcium 7.7 mg/dl (8.4-10.2); Carbon Dioxide 24 mmol/L (22-30); Chloride 102 mmol/L (98-107); Estimated Creatinine Clearance 44 ml/min; Glucose 109 mg/dl (70-99); Magnesium 2.1 mg/dl (1.6-2.3); Potassium 4.1 mmol/L (3.5-5.1); Sodium 132 mmol/L (135-145); Total Bilirubin 1.4 mg/dl (0.2-1.3); Total Protein 4.9 g/dl (6.3-8.2); eGFR 55.76
[2023-10-26] MEDS: ATIVAN 2 MG IV ×2 (05:56→15:22)
[2023-10-26] MEDS: NSS (PRESERVATIVE FREE) 1 ML IV ×2 (05:57→15:22)
[2023-10-26] MEDS: TRANSDERM-SCOP 1 PATCH TRANSDERM (05:57)
--- NOTE | 2023-10-26 06:12 | PTCARENOTE ---
pt tachycardic in 130s-140s, ekg completed. pt with twitching noted- boris sears aware and at bedside- ativan given. temp 101.1 ofirmev ordered and given.
[2023-10-26] MEDS: OFIRMEV 100 IV (06:26)
--- NOTE | 2023-10-26 07:00 | W.PN.HOSP.TC ---
Today's Communication/Plan
-
cont care as per ICU
lasix as per Cardio
flagyll added for anaerobic coverage
likely anoxic brain injury
poor prognosis
Assessment / Plan
Assessment / Plan
Physical Exam
General: Intubated
HEENT: NormoCephalic Vertical disconjugated Gaze fixated Upward pinpoint pupils
Respiratory: Clear to auscultation b/l
Cardiac: Tachycardia
GI: Distended decreased bowel sounds
Musculoskeletal: +1 pitting edema lower ext's b/l
Neuro: Sedated
IMPRESSION:
63F history of alcoholic liver cirrhosis BIBEMS out of hospital cardiac arrest intubated/sedated admitted ICU started on IV antibiotic for possible aspiration pneumonia, antiseizure medications due to jerking movements, started on heparin drip for
elevated troponin concern ACS.
PLAN:
#[id number] PEA/asystole cardiac arrest.
Indeterminate downtime
Status post CPR for 15 minutes, ROSC achieved.
Patient intubated/sedated
Management as per ICU team
#Acute hypoxic respiratory failure secondary to cardiac arrest
Continue mechanical ventilation
Aspiration pneumonia
cont empiric abx cefepime and vancomycin
ongoing fevers, flagyll added for anaerobic coverage
#Elevated troponin/non-STEMI
Possible secondary to CPR
ECHO appreciated preserved EF 65-70%
Cardio eval appreciated cont hep gtt trend troponin to peak, supportive care
10/25 once lasix as per cardio
suspected Heart failure BNP elevation and pulm edema noted on CT
#Acute kidney injury
initial Cr 0.8 increased to 1.[address] head negative
Neuro consult appreciated
-suspected Anoxic Brain Injury
-cont Keppra, Propofol, EEG
CT concerning for Bowel Ischemia/Shock Bowel
Lactic acid trending down from high 12.4
likely not a good candidate for surgical intervention
History of alcoholic liver cirrhosis
Paracentesis weekly as outpatient
Transaminitis
Progressive anemia no ostensible signs of bleeding.
clinical progress concerning for multiorgan failure
CODE STATUS: DNR
DVT prophylaxis: Heparin drip
Diet: N.p.o.
Overall Prognosis poor
Total Critical Care Time__50___ minutes. I was immediately available to the patient and staff. I personally examined, reviewed labs, diagnostic images/reports, interpretations, treatment plans, discussed patient care with other providers, entered
orders as appropriate and documented the medical record.
Anticipated Discharge: > 48 hours
Subjective/Interval History
-
Date of Service: October 26, 2023
Unresponsive. Absent corneal reflexes. No meaningful neurologic recovery noted.
Objective Data
-
Labs:
Laboratory Results
10/26/23 10/26/23 10/26/23
01:03 03:54 07:30
WBC 23.1 H
Hgb 7.0 L
Hct 22.0 L
Plt Count 335
APTT 102.6 H Pending
Sodium 132 L
Potassium 4.1
Chloride 102
Carbon Dioxide 24
BUN 33 H
Creatinine 1.1 H
Glucose 109 H
Calcium 7.7 L
Total Bilirubin 1.4 H
AST 156 H
ALT 44 H
Alkaline Phosphatase 97
10/26/23 10/26/23
12:00 18:00
WBC
Hgb Pending Pending
Hct Pending Pending
Plt Count
APTT
Sodium
Potassium
Chloride
Carbon Dioxide
BUN
Creatinine
Glucose
Calcium
Total Bilirubin
AST
ALT
Alkaline Phosphatase
Vital Signs:
Vital Signs
Temp Pulse Resp BP Pulse Ox
101.1 F H 134 17 160/88 98
10/26/23 06:37 10/26/23 06:00 10/26/23 06:00 10/26/23 06:00 10/26/23 06:00
I&O
10/25/23 10/26/23 10/27/23
06:59 06:59 06:59
Intake Total 126.6 / 139.3 270.2 / 270.2
Output Total 945 / 945 460 / 460
Balance -818.4 / -805.7 -189.8 / -189.8
[2023-10-26] MEDS: KEPPRA 1000 MG IV (07:18)
[2023-10-26] MEDS: NSS (PRESERVATIVE FREE) 10 ML IV (07:19)
[2023-10-26] MEDS: PROTONIX IV 40 MG IV (07:19)
[2023-10-26 07:50] LABS: APTT 55.7 Sec (23.4-35.0)
--- NOTE | 2023-10-26 08:10 | PTCARENOTE ---
Rec'd pt at 0700. Pt unresponsive on vent. No corneal reflex, eyes deviated up. Pupils 4, sluggish reaction. No purposeful movements in extremities, no repose to deep stimuli. Monitor ST. Lungs dim, sct coarse post. pox 93-96% on 40% fio2. Copious
amts of oral secretions. OGT to LIWS, hypo BS. Knight draining yellow urine. Pt repositioned. PTT drawn and sent, Heparin gtts infusing at 750units/hr.
[2023-10-26] MEDS: FLAGYL 500 MG 100 IV (09:17)
[2023-10-26] MEDS: HEPARIN 25000 UNITS/250 ML IV (09:17)
--- NOTE | 2023-10-26 10:04 | W.PN.CARDCBS ---
Today's Communication / Plan
-
Lasix 20 mg IV x 1
Continue treatment of bacteremia/possible pneumonia
Continue neurology assessment
Poor overall prognosis
Impression / Plan
-
PCP: Ramirez Flor
Bagman/Woman: None on record, initial consult Yslvester Juvenal Bui
Impression:
Presented 10/24/2023 with out of hospital asystolic arrest
Acute hypoxic respiratory failure with intubation
Blood cultures turning positive
Involuntary movements
Pulmonary edema
Possible aspiration pneumonia
Abnormal troponin
Hyponatremia
Hypokalemia
Chronic left bundle branch block
ETOH abuse
Alcoholic hepatitis
Ascites with weekly paracentesis at [facility]
GERD
Anxiety/depression
Psoriasis
Lower extremity cellulitis
Chronic anemia
Echo 08/21/2023: EF 60%, moderately dilated left atrium, mild MR. PAP 25 to 30 mmHg
Plan:
-Presented 10/24/2023 as out of hospital cardiac arrest noted to be in asystole with ACLS protocol and approximately 15 minutes of CPR. She was noted to be normal approximately 25 minutes prior to being found before ROSC.
-Patient currently intubated and sedated.
-No meaningful activity and hemodynamic lability of blood pressure and heart rate with increasing temperature. May be all neurogenic.
-Sinus tachycardia on telemetry and EKG. Would not treat given secondary to above.
-Acute hypoxic respiratory failure with concern aspiration pneumonia. Continue IV antibiotics per primary service. Blood cultures preliminarily positive.
-Mildly elevated proBNP with suggestion of pulm edema on CT. Will give 1 dose of IV Lasix 20 mg.
-Abnormal troponin, initial 0.107, now trending upward, 0.683. Continue to monitor and trend to peak. Continue IV heparin drip.
-ECG likely sinus tachycardia with IVCD
-Echocardiogram in August 2023 showed preserved ejection fraction. Repeat echocardiogram
-Neurology evaluation underway.
Spoke with her niece at the bedside she works in housekeeping in the emergency department.
Spoke with nursing.
HPI 10/25/2023:
Patient is a 63-year-old female with past medical history of alcohol abuse, liver cirrhosis with recurrent ascites, hypoalbuminemia, chronic anemia, GERD, anxiety/depression who presented 10/24/2023 with out of hospital cardiac arrest. History is
obtained by review coordinating care providers to obtain from family. Patient had been at [facility] earlier that day for her weekly paracentesis and was feeling well. Her grandson was at her house doing some work and had seen her
normal 25 minutes prior to finding her face down unresponsive. He was unable to find a pulse so he called 911 and started CPR. On EMS arrival she was noted to be in asystole. She was given 3 rounds of IV epinephrine with ROSC after an additional
10 minutes of CPR. On arrival to emergency department patient was intubated and unresponsive. The emergency news department intern CT showed no acute abnormality. CT of chest showed bilateral interstitial edema, bilateral opacities concerning for
aspiration versus pneumonia. Initial EKG showed wide complex rhythm with known LBBB. Initial troponin 0.107 but trending upward. After discussion with on-call combat systems operator mine warfare there was no plan for cardiac catheterization as arrest was felt to be
more respiratory in nature. Patient was placed on IV heparin drip and started on IV antibiotics for possible aspiration pneumonia. Patient developed myoclonic jerking bilaterally with disconjugate gaze and was started on Keppra. At time of this
evaluation patient remains intubated and sedated.
Progress Note - Bagman/Woman
Subjective
Date of Service: October 26, 2023
Unresponsive.
Objective
Labs:
10/26/23 03:54
Labs
Hgb 7.0 g/dL (12.0-16.0) L 10/26/23 03:54
Hct 22.0 % (37.0-47.0) L 10/26/23 03:54
Plt Count 335 10^3/uL (130-400) 10/26/23 03:54
PT Cancelled 10/25/23 05:30
INR Cancelled 10/25/23 05:30
APTT 55.7 Sec (23.4-35.0) H 10/26/23 07:21
Sodium 132 mmol/L (135-145) L 10/26/23 03:54
Potassium 4.1 mmol/L (3.5-5.1) 10/26/23 03:54
BUN 33 mg/dl (7-17) H 10/26/23 03:54
Creatinine 1.1 mg/dL (0.6-1.0) H 10/26/23 03:54
Glucose 109 mg/dl (70-99) H 10/26/23 03:54
Troponins
10/24/23 10/24/23 10/25/23
19:16 20:16 03:50
Troponin I 0.107 H* 0.335 H* D 0.683 H* D
10/25/23 10/25/23
03:50 10:09
Troponin I Cancelled 0.365 H* D
Vital Signs and I&O:
Vital Signs
Temp Pulse Resp BP Pulse Ox
100.8 F H 124 35 151/75 99
10/26/23 07:29 10/26/23 09:15 10/26/23 09:15 10/26/23 09:00 10/26/23 09:15
Vital Signs
Temp Pulse Resp BP Pulse Ox
100.8 F H 124 35 151/75 99
10/26/23 07:29 10/26/23 09:15 10/26/23 09:15 10/26/23 09:00 10/26/23 09:15
Intake & Output
10/24/23 10/25/23 10/26/23 10/27/23
06:59 06:59 06:59 06:59
Intake Total 126.6 / 139.3 270.2 / 277.7 124.5 / 124.5
Output Total 945 / 945 460 / 460
Balance -818.4 / -805.7 -189.8 / -182.3 124.5 / 124.5
Physical Exam
Physical Exam
Unresponsive in the bed
Coarse anterior breath sounds
Tacky but regular heart rate no obvious murmurs.
Trace edema bilateral
Abdomen distended
--- NOTE | 2023-10-26 10:19 | W.PN.INTV ---
Today's Communication / Plan
Recommendations
Obtain ABG
Continue mechanical ventilation, will adjust as necessary
Hold maintenance IV fluids as the patient has some degree of volume overload
Lasix ordered by cardiology
Minimize sedation
Continue with neurological checks
Continue antibiotics, Flagyl was added
Poor prognosis
Assessment
-
63-year-old woman with multiple comorbidities, mainly cirrhosis of the liver. Weekly paracentesis. Found down at home. Found to be on PEA/asystole cardiorespiratory arrest. Unknown time down. 15 minutes CPR with ROSC.
Intubated, mechanical ventilation and transferred to the critical care unit 10/24/2023.
-
Out of hospital cardiac arrest: PEA/asystole-50 minutes. Unknown time down.
Acute hypoxemic respiratory failure due to aspiration pneumonitis. Requiring intubation and mechanical ventilation.
Aspiration pneumonitis: Abnormal CT chest with bilateral infiltrates and groundglass opacities.
Cannot rule out congestive heart failure component.
-
Highly suspicious for severe anoxic brain injury-remains comatose
Lactic acidosis
Mild troponin leak likely non-UT
Abnormal LFTs likely ischemic injury
Conditions present prior admission:
Alcoholic cirrhosis-weekly paracentesis.
Hypertension
GERD
Anxiety
Assessment and plan:
Critically ill, intubated on mechanical ventilation. Remains comatose.
Suspected severe anoxic brain injury.
-
Mechanical ventilation settings reviewed.
Pulmonary mechanics are adequate.
Peak pressure 22.
FiO2 40%.
Continue without change
ABG 10/25/2023: 7.48//151
Repeat ABG today and will adjust mechanical ventilation as necessary.
-
No plans for spontaneous breathing trial at this point.
Patient has no cough effort.
-
Suspected severe anoxic brain injury:
Upward gaze. No corneal reflex. No cough reflex. No response to pain. Patient has respiratory effort.
CT head without acute abnormalities 10/25/2023 per
Remains comatose despite discontinuation of sedation.
Continue EEG monitoring-discussed with neurology. Poor prognostic indicators
Antiepileptic drugs
Case discussed with neurology-unfortunately poor prognostic indicators for recovery. Neurology continues to follow.
-
Continue antibiotics for possible aspiration event
Due to ongoing fevers will add Flagyl. Discussed with primary team.
Fever could be also central.
May need to adjust as patient comes from home
Follow cultures
-
Increased troponins likely due to CPR.
Increased proBNP: FiO2 40% per pulmonary mechanics
Diuresis per cardiology
Hemodynamically, not requiring vasopressors per
Doubt acute coronary syndrome
Echocardiogram normal LVEF. Normal biventricular size and function. No pericardial effusion
Cardiology following the patient
Currently on heparin drip. Follow-up PTT
-
Abdominal CT is noted with possible diffuse ischemic injury.
Lactate level trending lower. Doubt this is full thickness ischemia
Keep NG tube
Keep n.p.o.
Unlikely she will be a candidate for any interventions at this point. Continue supportive care
Lipase is elevated possibly due to ischemic event as well.
Discussed with primary team
-
Glycemic control Target blood sugars 140-180.
Insulin as needed
-
Anemia noted-will trend for now. No evidence for bleeding. Acute on chronic.
-
DVT prophylax-on heparin drip.
-
N.p.o.
NG tube in place
Head of elevation
-
Dr. Adrian updated daughter at the bedside 10/26/2023: Unfortunately
No meaningful neurological recovery. Considering withdrawal of care. For now continue support
Dr. Adrian updated 2 daughters extensively at the bedside 10/25/2023: Poor prognostic indicators. High likelihood of severe anoxic brain injury.
Patient would not want to be on mechanical ventilation per prior conversations. There is no advanced directive.
Will institute DNR.
Patient will continue to follow daily situation. In the next 24 to 48 hours if there is no meaningful recovery they would likely make a decision to withdraw care.
Prognosis guarded
-
Critical care statement: A total of 40 minutes of critical care time was provided for this patient today. This includes management of unstable vital signs, evaluation of the patient at bedside, reviewing the patient's pertinent medical records
including ventilator settings, arterial blood gases, radiographs, microbiology, laboratory evaluations and discussion with primary team, critical care nursing, and respiratory therapy.
Subjective Dataa
Subjective Data
Date of Service:
Date of Service: October 26, 2023
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
Subjective:
No meaningful neurological recovery.
Remains unresponsive
Low-grade fevers noted.
Review of Systems
General: Unobtainable - Pat Unresp
Objective Data
Data Reviewed
Vital Signs / I&O / Oxygen:
Vital Signs
Temp Pulse Resp BP Pulse Ox
100.8 F H 124 35 151/75 99
10/26/23 07:29 10/26/23 09:15 10/26/23 09:15 10/26/23 09:00 10/26/23 09:15
Intake and Output
10/25/23 10/26/23 10/27/23
06:59 06:59 06:59
Intake Total 126.6 / 139.3 270.2 / 277.7 124.5 / 124.5
Output Total 945 / 945 460 / 460
Balance -818.4 / -805.7 -189.8 / -182.3 124.5 / 124.5
SaO2 [A/C] 98
SaO2 99
Physical Exam
General: Respiratory Distress (n)
HEENT: Normocephalic and Other (ET tube in place)
Cardiovascular: S1-S2 and Regular Rhythm
Respiratory: Crackles and Non-Labored Respirations
GI: Soft and Non Distended
Neurology: Other (Unresponsive. On mechanical ventilation. No corneal reflex. Upward gazing. No response to pain. No gag reflex. Has respiratory effort)
Skin: Warm
Labs/Micro/Reports
Lab Data
10/26/23 03:54
Laboratory Results
10/25/23 10/25/23 10/25/23
05:30 10:09 18:37
PT Cancelled
INR Cancelled
APTT Cancelled 139.7 H 54.1 H
10/26/23 10/26/23
01:03 07:21
PT
INR
APTT 102.6 H 55.7 H
Microbiology
10/24/23 19:16 Blood/Venous Blood Culture - Preliminary
Positive culture in progress
10/24/23 19:16 Blood/Venous Gram Stain - Preliminary
10/24/23 19:16 Blood/Venous Blood Culture - Preliminary
Positive culture in progress
10/24/23 19:16 Blood/Venous Gram Stain - Preliminary
10/25/23 02:35 Nose Nasal Screen MRSA (PCR) - Final
MRSA not detected - performed by PCR methodology.
[2023-10-26] MEDS: LASIX 20 MG IV (10:27)
[2023-10-26 10:59] LABS: B.E. -1.7 mmol/L; HCO3 22.9 mmol/L (21-28); O2 Saturation % 95.1 % (94-98); PCO2 37 mmHg (32-35); PO2 69 mmHg (83-108)
--- NOTE | 2023-10-26 11:25 | PTCARENOTE ---
No changes in assessment. Family in to visit, updated by [employer].
[2023-10-26 11:29] LABS: Hematocrit 22.4 % (37.0-47.0); Hemoglobin 7.2 g/dL (12.0-16.0)
--- NOTE | 2023-10-26 15:04 | W.PN.UPDATE ---
Update Note
Progress Note Update
I discussed with multiple family members. 2 daughters were present.
Given lack of meaningful neurological recovery. We have decided to proceed with comfort care.
Patient will be extubated.
Medication will be discontinued
Morphine and Ativan as needed will be added.
Transferred to [facility].
[2023-10-26] MEDS: MORPHINE SULFATE 2 MG IV (15:22)
--- NOTE | 2023-10-26 15:44 | RESPNOTE ---
Respiratory: patient extubated without incident per Physician order.
--- NOTE | 2023-10-26 15:44 | PTCARENOTE ---
Multiple family members in to visit, Dr. Adrian in to speak with family. Family wishes to proceed with withdraw of care/extubation to comfort. 1520-Ativan and Morphine, ~1540-pt extubated to comfort with family at bedside.
--- NOTE | 2023-10-26 16:20 | W.PN.DEATH ---
Pronouncement of
-
Called to see patient to pronounce.
No spontaneous heart tones or respirations noted.
Patient not responsive to verbal stimuli.
Patient is pronounced .
Time of : 16:02
Date of : 10/26/23
Cause of : Cirrhosis, out of hospital cardiac arrest, aspiration pneumonia, multiorgan failure, anoxic brain injury, bowel ischemia
Family Notified: Yes (at bedside)
--- NOTE | 2023-10-26 17:38 | W.DCSUMMARY ---
Discharge Summary
Discharge Data
Date of Admission: 10/24/23
Date of Discharge: 10/26/23
-
Pending Results: No
Hospital Course
63F history of alcoholic liver cirrhosis weekly paracentesis BIBEMS out of hospital cardiac arrest intubated/sedated admitted ICU. CT and CXR concerning for pulmonary edema and pneumonia. Patient was treated with empiric abx cefipime and
vancomycin. Flagyll was later added for anaerobic coverage given persistent fever and possible shock bowel noted on CT. Antiseizure medications were started due to jerking movements. Patient was started on heparin drip for elevated troponin
concerning for ACS. Indeterminate downtime, reportedly CPR was performed for 15 minutes before ROSC was achieved. Elevated troponin, possible NSTEMI vs secondary to CPR, ECHO appreciated preserved EF 65-70%. Cardio evaluated and recommended cont
hep gtt trend troponin to peak, supportive care. 10/25 once lasix was given as per cardio recc's, suspected Heart failure BNP elevation and pulm edema noted on CT. over the course of hospitalization patient developed acute kidney injury, initial
Cr 0.8 increased to 1.1. With regards to Seizure, patient was started on keppra, received prn ativan. CT head negative for acute abn's. Neuro evaluated and assessed likely Anoxic brain injury. CT concerning for Bowel Ischemia/Shock Bowel, initial
Lactic acid trended down from high 12.4 to 3.3 over the course of hospitalization.
likely not a good candidate for surgical intervention. Clinical progress concerning for multiorgan failure. Patient exhibited no meaningful neurologic recovery. 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
care measures were elected. Patient soon passed following extubation, family present at bedside. Condolences were extended. Cause of Pneumonia Respiratory Cardiac Arrest Anoxic Brain Injury Multiorgan failure complicated with history
Alcoholic Liver Cirrhosis with Ascites.
Discharge Plan
-
Patient Disposition:
Date/Time
Date/Time: 10/26/23 16:02
Discharge Date and Time
Discharge Date/Time: 10/26/23 18:53
Print Language: MOROCCAN
--- NOTE | 2023-10-26 18:54 | PTCARENOTE ---
pt at 1602, Dr. Farmer up to pronounce pt. Family remained at bedside. Postmortem care completed at 1840 once family left. KARLA notified.
== END 2023-10-26 18:53 | disposition expired ==
LOC: ICU 23:11
PROVIDERS: Nurse Practitioner Family; ADMITTING PHYSICIAN General Practice; ATTENDING PHYSICIAN Internal Medicine; EMERGENCY PHYSICIAN Emergency Medicine; FAMILY PHYSICIAN Family Medicine; OTHER PHYSICIAN Internal Medicine Cardiovascular Disease; OTHER PHYSICIAN Internal Medicine Critical Care Medicine; OTHER PHYSICIAN Student in an Organized Health Care Education/Training Program
PROC: 5A1945Z Respiratory Ventilation, 24-96 Consecutive Hours (ICD-10-PCS; 2023-10-24)
DX: I46.9 Cardiac arrest, cause unspecified (principal); J69.0 Pneumonitis due to inhalation of food and vomit; I21.4 Non-ST elevation (NSTEMI) myocardial infarction; J96.01 Acute respiratory failure with hypoxia; R40.20 Unspecified coma; G93.1 Anoxic brain damage, not elsewhere classified; E87.1 Hypo-osmolality and hyponatremia; K55.9 Vascular disorder of intestine, unspecified; E87.20 Acidosis, unspecified; N17.9 Acute kidney failure, unspecified; K21.9 Gastro-esophageal reflux disease without esophagitis; I10 Essential (primary) hypertension; K70.31 Alcoholic cirrhosis of liver with ascites; K70.11 Alcoholic hepatitis with ascites; D64.9 Anemia, unspecified; L40.9 Psoriasis, unspecified; F10.11 Alcohol abuse, in remission; F32.A Depression, unspecified; F41.9 Anxiety disorder, unspecified; G25.3 Myoclonus; I95.9 Hypotension, unspecified; R74.01 Elevation of levels of liver transaminase levels; I44.7 Left bundle-branch block, unspecified; E87.6 Hypokalemia; Z66 Do not resuscitate; Z79.82 Long term (current) use of aspirin; Z11.52 Encounter for screening for COVID-19; Z88.0 Allergy status to penicillin; Z63.4 Disappearance and death of family member
CPT/HCPCS: 93308; 36556; 36600; 70450; 71045; 71260; 74177; 80053; 80061; 81003; 81015; 82077; 82805; 82962; 83605; 83690; 83735; 83880; 84100; 84478; 84484; 84703; 85014; 85018; 85025; 85610; 85730; 86850; 86900; 86901; 87040; 87077; 87149; 87185; 87205; 87641; 87811; 93005; 93321; 93325; 94002; 94003; 95714; 95813; 96365; 96366; 96367; 96375; 99291; Q9967